=== PATIENT | male | born 1940 | race Caucasian/White ===

== ENCOUNTER 2016-12-04 13:17 | Emergency (ER) | payer MEDICARE, OTHER ==
[~2016-12-04] VITALS: Ht 175.3 cm; Wt 89.8 kg
[~2016-12-04 13:17] MED LIST: ASPIRIN325 MG PO; CEPHALEXIN500 MG PO; CLARITIN10 MG PO; KLOR-CON20 MEQ PO; LIPITOR40 MG PO; LISINOPRIL10 MG PO; MECLIZINE HCL25 MG PO; METOPROLOL SUCC25 MG PO; PREDNISONE20 MG PO; PRILOSEC20 MG PO; PSEUDOEPHEDRINE60 MG PO; TRANSDERM-SCOP1 EA TD; ZOFRAN ODT4 MG SL
[2016-12-04] MEDS ORDERED: RANITIDINE HCL300 MG PO (13:33)
[2016-12-04] MEDS ORDERED: COZAAR100 MG PO (13:34)
--- NOTE | 2016-12-04 19:13 | EKG ---
[facility] [address] [facility] [place] [address] Signed Normal sinus rhythm T wave abnormality, consider anterior ischemia Prolonged QT Abnormal ECG No previous ECGs available Confirmed by PABLO LI MD ([id number]) on 12/04/2016 7:13:03 PM Electronically Signed By: PABLO LI MD 12/04/16 191 PATIENT NAME: AMANDEEP ANDERSON ANNI Electrocardiogram DATE OF : 42 PHYSICIAN: PABLO LI MD REPORT #: [id number] REPORT IS CONFIDENTIAL AND NOT TO BE RELEASED WITHOUT AUTHORIZATION
== END 2016-12-04 16:30 | disposition home or self-care (01) ==
LOC: ED 13:17
DX: R07.89 Other chest pain (principal); I10 Essential (primary) hypertension; J45.909 Unspecified asthma, uncomplicated; Z91.038 Other insect allergy status; Z88.5 Allergy status to narcotic agent; Z95.1 Presence of aortocoronary bypass graft; Z79.82 Long term (current) use of aspirin
CPT/HCPCS: 71010; 80053; 84484; 85025; 93005; 93010; 99284

== ENCOUNTER 2017-04-05 06:50 | Day surgery (SDC) | payer MEDICARE, OTHER ==
[~2017-04-05] VITALS: Ht 175.3 cm; Wt 86.2 kg
[~2017-04-05 06:50] MED LIST changes: +COZAAR100 MG PO; +RANITIDINE HCL300 MG PO
--- NOTE | 2017-04-05 09:42 | NUR ---
04/05/17 0942 Ting Hoang [address], CHIN HOLDING NEEDED TO MAINTAIN AIRWAY. 0930 PT REACTIVE AND MOVING. 0937 ORAL AIRWAY REMOVED. PT MAINTAINING OWN AIRWAY. 0939 O2 SAT 98%, O2 DECREASED TO 8L.
--- NOTE | 2017-04-05 10:11 | NUR ---
PT IS BACK TO FROM PACU. SHE IS AWAKE AND ORIENTED. HE IS TOLERATING SIPS OF WATER. IS AT THE BEDSIDE. CALL LIGHT IS WITHIN REACH. NO OTHER C/O'S AT THIS TIME. WILL REASSESS WITHIN THE HOUR.
[2017-04-05] MEDS ORDERED: KEFLEX500 MG PO (10:30)
[2017-04-05] MEDS ORDERED: OXYCODONE HCL5 MG PO (10:30)
--- NOTE | 2017-04-05 11:10 | NUR ---
PT REPORTS THAT IT FEELS LIKE HE NEEDS TO BLOW HIS NOSE. HE IS EDUCATED NOT TO BLOW HIS NOSE HARD, THAT HE CAN GENTLY BREATH OUT. PT IS MEETING DISCHARGE CRITERIA AT THIS TIME. HE IS ASKED IF HE WOULD LIKE TO START GETTING READY TO GO HOME, HE STATES HE WOULD LIKE TO STAY A LITTLE BIT LONGER TO SEE IF HIS HEADACHE WILL GO AWAY. HE IS OFFERED SOMETHING MORE BESIDE PUDDING TO EAT. CALL LIGHT IS WITHIN REACH. NO OTHER C/O'S AT THIS TIME. WILL REASSESS WITHIN THE HOUR.
--- NOTE | 2017-05-24 14:15 | OR ---
[facility] [address] [place], [place] [address] Signed DATE OF OPERATION: 04/05/2017 SURGEON: Alexandro Bertrand MD PREOPERATIVE DIAGNOSES: Septal deformity, inferior turbinate hypertrophy, and left alar collapse. POSTOPERATIVE DIAGNOSES: Septal deformity, inferior turbinate hypertrophy, and left alar collapse. PROCEDURES: Septoplasty cautery, bilateral inferior turbinates, and left nasal vestibuloplasty. ANESTHESIA: General LMA, JW, Rafa. PREOPERATIVE HISTORY: Mr. Anderson is a 76-year-old man with nasal obstruction due to the above mentioned difficulties. He is taken to the operating for the above-mentioned procedures. PROCEDURE AND FINDINGS: After informed consent, the patient was taken to the operating room and placed in the supine position, where general LMA anesthesia was induced. The patient and procedure were verified. The patient received preoperative intranasal oxymetazoline and intravenous Ancef. Headlight nasal speculum exam of the nasal cavity showed a septal deviation to the left side, a cartilaginous spur. The inferior turbinates were nicely decongested. There was alar collapse with prominent cartilage in the nasal vestibule, left side. He had excision of skin cancer on the left side of his nose in the past and this causes the deformity intranasally causing obstruction. Septoplasty was performed first. A 1% lidocaine with epi was injected in the mucosa overlying the septal deviation. The deviated septal bone and cartilage were then excised with the Brigido. Airway was improved in this manner, minimal bleeding. The inferior turbinates were then cauterized starting on the right side. The long handle needle point cautery, multiple passes submucosal on the medial and inferior surface of the inferior turbinates starting anteriorly all the way back posteriorly. Excellent decongestion of the inferior turbinate was obtained in this manner. Same procedure on the left inferior turbinate, minimal bleeding. The left alar collapse was corrected. A 1% lidocaine with epi was injected in the left Electronically Signed By: ALEXANDRO BERTRAND MD 05/24/17 1415 PATIENT NAME: AMANDEPE ANDERSON OPERATIVE REPORT DATE OF : 42 REPORT #: [id number] PHYSICIAN: ALEXANDRO BERTRAND MD PCP: RENETTA MOYER MD REPORT IS CONFIDENTIAL AND NOT TO BE RELEASED WITHOUT AUTHORIZATION [facility] [address] [place] [address] Signed intranasal ala. The elliptical excision was made, excising prominent cartilage and tissue was removed with some underlying cartilage. Specimen was discarded. The bleeding was minimal, controlled with needle point cautery. Closure was with 5-0 interrupted Vicryl and the nasal ala was markedly improved in this manner. Packing was placed. Equal amount of trimmed Merocel coated with Neosporin one piece each side, tied anteriorly over a pad. The pharynx was suctioned clear of blood and secretions. The patient was then awakened, extubated, and transported to the recovery room in good condition. COMPLICATIONS: No complications. BLOOD LOSS: Minimal. SPECIMEN: No specimen. DRAINS: No drains. PACKING: One piece of Merocel in each nostril. Alexandro Bertrand MD GC/MODL /[id number] Electronically Signed By: ALEXANDRO BERTRAND MD 05/24/17 1415 PATIENT NAME: AMANDEEP ANDERSON ANNI OPERATIVE REPORT DATE OF : 42 REPORT #: [id number] PHYSICIAN: ALEXANDRO BERTRAND MD PCP: RENETTA MOYER MD REPORT IS CONFIDENTIAL AND NOT TO BE RELEASED WITHOUT AUTHORIZATION
== END 2017-04-05 12:30 | disposition home or self-care (01) ==
LOC: DS 06:50 → OPS 06:50 → DS 08:15 → OPS 08:15
PROVIDERS: Otolaryngology
PROC: 095L0ZZ Destruction of Nasal Turbinate, Open Approach (ICD-10-PCS; 2017-04-05)
PROC: 0CN Mouth and Throat, Release (ICD-10-PCS; 2017-04-05)
PROC: 09SM0ZZ Reposition Nasal Septum, Open Approach (ICD-10-PCS; principal; 2017-04-05 08:15)
DX: J34.2 Deviated nasal septum (principal); J34.3 Hypertrophy of nasal turbinates; J34.89 Other specified disorders of nose and nasal sinuses
CPT/HCPCS: 00160; J0690; J1100; J1885; J2405; J2704; J3010; J7120

== ENCOUNTER 2017-07-15 09:35 | Day surgery (SDC) | payer MEDICARE, OTHER ==
[~2017-07-15] VITALS: Ht 172.7 cm; Wt 87.1 kg
[~2017-07-15 09:35] MED LIST changes: +KEFLEX500 MG PO; +OXYCODONE HCL5 MG PO
--- NOTE | 2017-07-15 13:23 | NUR ---
07/15/17 1323 Rere Menendez TO PACU, RESP EVEN UNLABORED. EASILY AWAKENED
--- NOTE | 2017-07-16 10:03 | OR ---
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 POSTOPERATIVE DIAGNOSES: 1. Gastritis including antrum and duodenitis without ulceration. 2. Normal-appearing colon. PROCEDURES: 1. Esophagogastroduodenoscopy with biopsy. 2. Total colonoscopy to cecum. ANESTHESIA: Intravenous sedation. MEDICATIONS: Fentanyl 100 mcg, Versed 5 mg. INDICATION: This 77-year-old white man is a patient of Dr. Alex. 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 His daughter had colon cancer diagnosed at age 32. The patient has undergone surveillance colonoscopy by me over time and has had polypectomies, particularly on the right colon. He is symptom-free at this time. He also was known to have gastritis in the past and takes Zantac. His last upper endoscopy was in May 2016. Colonoscopy last in May 2016 as well. He was admitted to undergo surveillance colonoscopy as well as upper endoscopy. He understands the risks of bleeding, infection, and perforation. FINDINGS: On upper endoscopy, he did have significant antral gastritis and duodenitis. There was no sign of polyp. CLOtest was negative. On colonoscopy, the prep was good and complete colonoscopy to the cecum showed no sign of recurrent polyps. Areas of tattoo marking from prior polypectomies were well demonstrated showing no sign of recurrence. DESCRIPTION OF PROCEDURE: Electronically Signed By: JORGE A TINSLEY MD 07/16/17 1003 PATIENT NAME: AMANDEEP ANDERSON OPERATIVE REPORT DATE OF : 42 REPORT #: [id number] PHYSICIAN: JORGE A TINLSEY MD PCP: BABAR ALEX MD REPORT IS CONFIDENTIAL AND NOT TO BE RELEASED WITHOUT AUTHORIZATION [facility] [address] [place], [place] [address] Signed The patient was brought to the endoscopy suite given topical Hurricaine spray and hypopharyngeal anesthesia and placed in lateral decubitus position. He was given intravenous sedation to the point of slurred speech and nystagmus. Olympus video upper endoscope was passed in the hypopharynx after placement of a bite block. The vocal cords appeared normal. The esophagus appeared to have mild distal inflammation, but no sign of neoplasm or varices. The scope was passed into the stomach where obvious chronic gastritis was noted. There was no sign of ulceration. The pylorus was normal in appearance, but was a bit challenging to pass the scope into the duodenum due to confirmation of the stomach itself. Ultimately, the duodenum was intubated and chronic duodenitis without ulceration was noted. Biopsies were obtained. The scope was withdrawn and biopsies taken of the antrum for both MARGOT and pathologic testing. Retroflexed views showed a reasonably good flap valve. The scope was withdrawn to the distal esophagus where biopsies were taken there. Further withdrawal of scope showed no other findings. Plans were then made for colonoscopy. Digital rectal examination was found to be normal. Olympus video colonoscope was passed in the rectum and manipulated throughout the colon ultimately intubating the cecum itself. The ileocecal valve and appendiceal orifice were normal. The scope was withdrawn from that point, showing no sign of abnormality, but did confirm multiple areas of endoscopic tattoo, particularly at the hepatic flexure from the past. The scope was further withdrawn and additional area of tattoo marking noted in the left colon. Remaining colon was entirely normal and retroflex view was normal as well. The scope was removed and the patient was taken to recovery room in good condition. CONCLUDING DIAGNOSES: 1. Antral gastritis and duodenitis. No sign of neoplasm or polyps. 2. Normal-appearing colon. No evidence of recurrent polyp currently. PLAN: 1. For screening protocol, colonoscopy would be recommended for 1 year. 2. Due to significant antral gastritis and duodenitis, will inquire whether he is having much in the way of symptoms. He is taking Zantac on a routine basis. Addition of Carafate may be of benefit to him if concern is maintained regarding PPI medication. Jorge A Tinsley MD Electronically Signed By: JORGE A TINSLEY MD 07/16/17 1003 PATIENT NAME: AMANDEEP ANDERSON OPERATIVE REPORT DATE OF : 42 REPORT #: [id number] PHYSICIAN: JORGE A TINSLEY MD PCP: BABAR ALEX MD REPORT IS CONFIDENTIAL AND NOT TO BE RELEASED WITHOUT AUTHORIZATION [facility] [address] [facility] [place], [place] [address] Signed PASQUALE/ERIC /[id number] cc: Babar Alex MD Copies: BABAR ALEX MD ~ Electronically Signed By: JORGE A TINSLEY MD 07/16/17 1003 PATIENT NAME: AMANDEEP ANDERSON OPERATIVE REPORT DATE OF : 42 REPORT #: [id number] PHYSICIAN: JORGE A TINSLEY MD PCP: BABAR ALEX MD REPORT IS CONFIDENTIAL AND NOT TO BE RELEASED WITHOUT AUTHORIZATION
== END 2017-07-15 14:08 | disposition home or self-care (01) ==
LOC: OPS 09:35 → DS 09:35 → OPS 11:00
PROVIDERS: Surgery
PROC: 0DB68ZX Excision of Stomach, Via Natural or Artificial Opening Endoscopic, Diagnostic (ICD-10-PCS; 2017-07-15)
PROC: 0DB38ZX Excision of Lower Esophagus, Via Natural or Artificial Opening Endoscopic, Diagnostic (ICD-10-PCS; 2017-07-15)
PROC: 0DJD8ZZ Inspection of Lower Intestinal Tract, Via Natural or Artificial Opening Endoscopic (ICD-10-PCS; principal; 2017-07-15 11:00)
PROC: 0DB98ZX Excision of Duodenum, Via Natural or Artificial Opening Endoscopic, Diagnostic (ICD-10-PCS; 2017-07-15 11:00)
DX: Z12.11 Encounter for screening for malignant neoplasm of colon (principal); K21.0 Gastro-esophageal reflux disease with esophagitis; J45.909 Unspecified asthma, uncomplicated; E78.00 Pure hypercholesterolemia, unspecified; I10 Essential (primary) hypertension; Z85.828 Personal history of other malignant neoplasm of skin; Z86.010 Personal history of colon polyps; Z88.5 Allergy status to narcotic agent; Z88.8 Allergy status to other drugs, medicaments and biological substances; Z80.0 Family history of malignant neoplasm of digestive organs; Z98.890 Other specified postprocedural states; Z15.09 Genetic susceptibility to other malignant neoplasm
CPT/HCPCS: 43239; G0105; 88305; 88313; 99153; G0500; J2250; J3010; J7120

== ENCOUNTER 2018-05-02 17:02 | Emergency (ER) | payer MEDICARE, OTHER ==
[~2018-05-02] VITALS: Ht 172.7 cm; Wt 87.1 kg
[2018-05-02] MEDS ORDERED: BENZONATATE100 MG PO (19:36)
[2018-05-02] MEDS ORDERED: PRILOSEC OTC20 MG PO (19:37)
[2018-05-02] MEDS ORDERED: VENTOLIN HFA18 GM INH (19:38)
[2018-05-02] MEDS ORDERED: FLOVENT HFA10.6 GM INH (19:38)
== END 2018-05-02 21:29 | disposition home or self-care (01) ==
LOC: ED 17:02
DX: J10.1 Influenza due to other identified influenza virus with other respiratory manifestations (principal); I10 Essential (primary) hypertension; Z91.038 Other insect allergy status; Z91.030 Bee allergy status; Z88.8 Allergy status to other drugs, medicaments and biological substances; Z88.5 Allergy status to narcotic agent; Z79.899 Other long term (current) drug therapy; Z79.82 Long term (current) use of aspirin
CPT/HCPCS: 87502; 99283

== ENCOUNTER 2018-07-27 11:39 | Day surgery (SDC) | payer MEDICARE, OTHER ==
[~2018-07-27] VITALS: Ht 172.7 cm; Wt 88.9 kg
[~2018-07-27 11:39] MED LIST changes: +BENZONATATE100 MG PO; +FLOVENT HFA10.6 GM INH; +PRILOSEC OTC20 MG PO; +PROAIR HFA8.5 GM INH; +VENTOLIN HFA18 GM INH; +XYZAL5 MG PO
--- NOTE | 2018-07-27 13:26 | NUR ---
07/27/18 1326 Irma Nguyen PATIENT IS AWAKE AND TALKING WITH RN. PATIENT DENIES PAIN AND NAUSEA.
--- NOTE | 2018-07-28 14:25 | OR ---
[facility] [address] [place], [place] [address] Signed DATE OF OPERATION: 07/27/2018 SURGEON: Jorge A Tinsley MD PREOPERATIVE DIAGNOSES: 1. Known Saba syndrome. 2. History of polyps of cecum. 3. Significant history of gastroesophageal reflux. POSTOPERATIVE DIAGNOSES: 1. Persistent ulcerative distal esophagitis with small hiatal hernia. 2. Minimal antral gastritis. 3. Questionable remnant of polyp at cecum (excised). PROCEDURES: 1. Esophagogastroduodenoscopy with biopsy. 2. Total colonoscopy to cecum with cold morcellation, excision of mucosa at cecum. ANESTHESIA: Intravenous sedation, fentanyl 100 mcg and Versed 3 mg. INDICATION: This 78-year-old white man is a patient Dr. Alex and well demonstrated to have Saba syndrome. This was discovered after his daughter, who was discovered to have colon cancer at young age and genetic testing undertaken and confirmed in the patient himself. He has undergone colonoscopy and upper endoscopy in the past, last year on June 18, 2017. He has also undergone upper endoscopy and colonoscopy at that time noted to have ulcerative esophagitis. He is admitted at this time to undergo surveillance colonoscopy as well as upper endoscopy as he continues to have persistent esophagitis type symptoms despite being on Prilosec. He has been advised by his PCP, Dr. Alex, to alternate Prilosec with Zantac. He understands the risks of upper endoscopy and colonoscopy and wished to proceed. FINDINGS: Upper endoscopy stomach showed persistent distal ulcerative esophagitis. There was no sign of Nichole's epithelium. A low-grade stricture was noted. The stomach had mild antral gastritis but was otherwise normal. CLOtest was negative. On colonoscopy, the prep was good. Complete colonoscopy to the cecum was accomplished. There was obvious tattoo from prior polypectomy of the cecum. In the area of mucosa between two areas of tattoo was suggestive though not diagnostic of persistent polyp. Electronically Signed By: JORGE A TINSLEY MD 07/28/18 1425 PATIENT NAME: AMANDEEP ANDERSON OPERATIVE REPORT DATE OF : 42 REPORT #: [id number] PHYSICIAN: JORGE A TINSLEY MD PCP: BABAR ALEX MD REPORT IS CONFIDENTIAL AND NOT TO BE RELEASED WITHOUT AUTHORIZATION [facility] [address] [place] [address] Signed Narrow band imaging was not helpful in determining this. The area was thus excised with morcellation technique and pathology is pending. The remaining colon was normal except for scattered diverticula. DESCRIPTION OF PROCEDURE: The patient was brought to the endoscopy suite and placed in lateral decubitus position after undergoing topical Hurricaine spray hypopharyngeal anesthesia. A bite block was placed. An Olympus video upper endoscope passed in the hypopharynx. The vocal cords appeared normal. Scope was advanced to the esophagus throughout its length, normal except in the distal portion where there was linear ulcerations and some stiffness, though no well-formed stricture. The scope was advanced to the stomach, which was insufflated with air. Rugal folds were normal. There was mild antral gastritis. No erosion or ulcers. The pylorus was normal scope was passed through into the duodenum, which was normal. Biopsies were obtained nevertheless to assess for celiac disease. The scope was withdrawn showing no sign of duodenal polyps. The scope was then withdrawn to the stomach where biopsies were taken for both MARGOT and pathologic testing. Retroflexed view confirmed a small hiatal hernia. The scope was straightened, withdrawn to the distal esophagus where multiple biopsies were taken of the thickened ulcerated distal esophagus. Further withdrawal of scope showed no other abnormalities. Plans were then made for colonoscopy. Digital rectal examination was found to be normal. An Olympus video colonoscope was passed in the rectum and manipulated throughout the colon noting diverticula of the sigmoid and left colon. Scope was advanced to the cecum and with abdominal wall stabilization, particularly on the right side. The scope was able to fully intubate the cecum itself. The area of prior endoscopic tattoo dye was noted in confluence of areas of dye was a fold with what appeared to be possible remnant of polyp, though this was not certain. Narrow band imaging was not helpful in determining this. The area since possibly adenomatous was multiple EO biopsied and excised by that approach completely. Careful withdrawal of scope showed no sign of other polyps or other mucosal lesion up on withdrawal of scope. Retroflex view was normal as well. The scope was removed and the patient was taken to recovery room in good condition. CONCLUDING DIAGNOSES: 1. Ongoing distal esophagitis. 2. Possible polyp remnant of cecum (excised). PLAN: Recommend Prilosec 120 mg daily without alternate H2 martine. If he is already doing that, then recommend double dose 40 mg daily. He will return to see me in 4-6 weeks to review findings and his progress particularly regarding esophagitis. Electronically Signed By: JORGE A TINSLEY MD 07/28/18 1425 PATIENT NAME: AMANDEEP ANDERSON OPERATIVE REPORT DATE OF : 42 REPORT #: [id number] PHYSICIAN: JORGE A TINSLEY MD PCP: BABAR ALEX MD REPORT IS CONFIDENTIAL AND NOT TO BE RELEASED WITHOUT AUTHORIZATION [place] [address] Signed MD PASQUALE Fox/MODL /[id number] cc: Babar Alex MD Copies: BABAR ALEX MD ~ Electronically Signed By: JORGE A TINSLEY MD 07/28/18 1425 PATIENT NAME: AMANDEEP ANDERSON OPERATIVE REPORT DATE OF : 42 REPORT #: [id number] PHYSICIAN: JORGE A TINSLEY MD PCP: BABAR ALEX MD REPORT IS CONFIDENTIAL AND NOT TO BE RELEASED WITHOUT AUTHORIZATION
== END 2018-07-27 14:05 | disposition home or self-care (01) ==
LOC: DS 11:39 → OPS 11:39 → DS 13:00 → OPS 14:05
PROVIDERS: Surgery
PROC: 0DB38ZX Excision of Lower Esophagus, Via Natural or Artificial Opening Endoscopic, Diagnostic (ICD-10-PCS; 2018-07-27)
PROC: 0DBH8ZX Excision of Cecum, Via Natural or Artificial Opening Endoscopic, Diagnostic (ICD-10-PCS; 2018-07-27)
PROC: 0DB98ZX Excision of Duodenum, Via Natural or Artificial Opening Endoscopic, Diagnostic (ICD-10-PCS; principal; 2018-07-27 13:00)
PROC: 0DB78ZX Excision of Stomach, Pylorus, Via Natural or Artificial Opening Endoscopic, Diagnostic (ICD-10-PCS; 2018-07-27 13:00)
DX: Z12.11 Encounter for screening for malignant neoplasm of colon (principal); D12.0 Benign neoplasm of cecum; K29.50 Unspecified chronic gastritis without bleeding; K22.10 Ulcer of esophagus without bleeding; K21.0 Gastro-esophageal reflux disease with esophagitis; K44.9 Diaphragmatic hernia without obstruction or gangrene; J68.3 Other acute and subacute respiratory conditions due to chemicals, gases, fumes and vapors; I10 Essential (primary) hypertension; Z15.09 Genetic susceptibility to other malignant neoplasm; Z88.5 Allergy status to narcotic agent; Z98.890 Other specified postprocedural states
CPT/HCPCS: 99153; G0500; J2250; J3010; J7120

== ENCOUNTER 2019-10-02 08:05 | Day surgery (SDC) | payer MEDICARE, OTHER ==
[~2019-10-02] VITALS: Ht 172.7 cm; Wt 94.8 kg
--- NOTE | 2019-10-02 09:57 | NUR ---
10/02/19 0957 Maite Kohler 0946 PT ARRIVED IN PACU SLEEPY WITH NO C/O'S. ABD SOFT. 0955 ENCOURAGED COUGH, DEEP BREATHING. REPOSTIONED TO BACK AND SITTING UP IN BED.
--- NOTE | 2019-10-02 13:17 | OR ---
[facility] [address] [place], [place] [address] Signed DATE OF OPERATION: 10/02/2019 SURGEON: Jorge A Tinsley MD PREOPERATIVE DIAGNOSES: 1. Known Saba syndrome. 2. History of polyps of right colon. POSTOPERATIVE DIAGNOSIS: No evidence of polyps currently. PROCEDURE: Total colonoscopy to cecum surgeon. ANESTHESIA: Intravenous sedation, fentanyl 100 mcg and Versed 3 mg. 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 He has undergone colonoscopy by me in the past. His last colonoscopy and concurrent upper endoscopy were performed on July 27, 2018. He had mild esophagitis and gastritis and his symptoms have cleared from reflux. A small polyp of cecum with high-grade dysplasia was noted. He currently has no symptoms of bleeding, diarrhea or constipation. He has undergone polypectomy in the area of the right colon and tattoo has been undertaken as well. He is here for surveillance colonoscopy. He understands the risks of bleeding, infection, perforation, and other unforeseen complications. FINDINGS: The prep was good. Complete colonoscopy was undertaken of the cecum without question. He had no evidence of polyps. He did have three areas of endoscopic tattoo markings noted in the right colon. DESCRIPTION OF PROCEDURE: The patient was brought to the endoscopy suite and placed in lateral decubitus position, given intravenous sedation to the point of slurred speech and nystagmus. Digital rectal examination was normal. An Olympus video colonoscope was passed in the rectum and manipulated throughout the colon ultimately intubating the cecum itself. The ileocecal valve and appendiceal Electronically Signed By: JORGE A TINSLEY MD 10/02/19 1317 PATIENT NAME: AMANDEEP ANDERSON OPERATIVE REPORT DATE OF : 42 REPORT #: [id number] PHYSICIAN: JORGE A TINSLEY MD PCP: BABAR ALEX MD REPORT IS CONFIDENTIAL AND NOT TO BE RELEASED WITHOUT AUTHORIZATION [facility] [address] [place] [address] Signed orifice were normal. He did require position change to allow for complete intubation of the cecum. The scope was withdrawn from that point and examination throughout showed no sign of polyps, diverticular formation, colitis, or cancer. Tattoo markings of the right colon were noted from prior polypectomy. Retroflexed view was normal as well. The scope was removed and the patient was taken to the recovery room in good condition. CONCLUSION DIAGNOSIS: Normal colon. PLAN: Current standard is to recommend an annual colonoscopy in patients with Saba syndrome, particularly those with prior polyps. We will make that recommendation. MD PASQUALE Fox/ERIC /[id number] cc: Babar Alex MD Copies: BABAR ALEX MD ~ Electronically Signed By: JORGE A TINSLEY MD 10/02/19 1317 PATIENT NAME: AMANDEEP ANDERSON OPERATIVE REPORT DATE OF : 42 REPORT #: [id number] PHYSICIAN: JORGE A TINSLEY MD PCP: BABAR ALEX MD REPORT IS CONFIDENTIAL AND NOT TO BE RELEASED WITHOUT AUTHORIZATION
== END 2019-10-02 10:32 | disposition home or self-care (01) ==
LOC: OPS 08:05 → DS 08:11 → OPS 10:32 → DS 13:00
PROVIDERS: Surgery
PROC: 0DJD8ZZ Inspection of Lower Intestinal Tract, Via Natural or Artificial Opening Endoscopic (ICD-10-PCS; principal; 2019-10-02 13:00)
DX: Z09 Encounter for follow-up examination after completed treatment for conditions other than malignant neoplasm (principal); I10 Essential (primary) hypertension; K21.9 Gastro-esophageal reflux disease without esophagitis; Z88.6 Allergy status to analgesic agent; Z86.010 Personal history of colon polyps; Z79.899 Other long term (current) drug therapy; Z79.82 Long term (current) use of aspirin
CPT/HCPCS: 99153; G0500; J2250; J3010

== ENCOUNTER 2020-12-14 17:40 | Emergency (ER) | payer MEDICARE, OTHER ==
[~2020-12-14] VITALS: Ht 172.7 cm; Wt 94.8 kg
--- NOTE | 2020-12-14 18:57 | EKG ---
[facility] [address] [facility] [place] [address] Signed Normal sinus rhythm Left axis deviation Abnormal ECG When compared with ECG of 04-DEC-2016 13:27, QRS axis shifted left T wave inversion no longer evident in Anterior leads Confirmed by RG HOGAN MD ([id number]) on 12/14/2020 6:57:41 PM Electronically Signed By: RG HOGAN MD 12/14/20 1857 PATIENT NAME: ANDERSONAMANDEEP Electrocardiogram DATE OF : 42 PHYSICIAN: RG HOGAN MD REPORT #: [id number] REPORT IS CONFIDENTIAL AND NOT TO BE RELEASED WITHOUT AUTHORIZATION
== END 2020-12-14 20:18 | disposition home or self-care (01) ==
LOC: ED 17:40
DX: R42 Dizziness and giddiness (principal); I10 Essential (primary) hypertension; J45.909 Unspecified asthma, uncomplicated; Z88.5 Allergy status to narcotic agent; Z91.030 Bee allergy status; Z91.038 Other insect allergy status; Z88.8 Allergy status to other drugs, medicaments and biological substances; Z88.1 Allergy status to other antibiotic agents; Z79.82 Long term (current) use of aspirin; Z79.899 Other long term (current) drug therapy
CPT/HCPCS: 71045; 80053; 81001; 84484; 85025; 93005; 93010; 99285-25

== ENCOUNTER 2021-02-16 11:44 | Day surgery (SDC) | payer MEDICARE, OTHER ==
[~2021-02-16] VITALS: Ht 172.7 cm; Wt 92.0 kg
[~2021-02-16 11:44] MED LIST changes: +24HR ALLERGY REL5 MG PO
[2021-02-16] MEDS ORDERED: VAZALORE81 MG PO (12:38)
[2021-02-16] MEDS ORDERED: CLARITIN10 MG PO (12:40)
--- NOTE | 2021-02-16 17:09 | NUR ---
02/16/21 1709 Maite Kohler 1600 PT ARRIVED IN PACU SLEEPY WITH SATS 85% ON RA. O2 AT 2L VIA NC PLACED AND SATS INCREASED TO 90%. ENCOURAGED COUGH, DEEP BREATHNG. ABD SOFT AND PASSING FLATUS. 1615 OXYGEN REMOVED. PT SITTING UP IN BED TALKING TO ALL QUESTIONS ANSWERED. 1620 SIPPING ON APPLE JUICE. 1630 RN AT BEDSIDE FOR STAND BY ASSIST WHILE PT GETTING DRESSED. DC INSTRUCTIONS GIVEN. 1645 LEFT VIA W/C TO MICHELL FOR CARERIDE ON RESERVATION. MICHELL AGEE STATED "I KNOW JONATHON AND BILL, I'LL MAKE SURE THEY GET HOME."
--- NOTE | 2021-02-18 13:37 | OR ---
[facility] [address] [place], [place] [address] Signed DATE OF OPERATION: 02/16/2021 SURGEON: Jorge A Tinsley MD PREOPERATIVE DIAGNOSIS: Saba syndrome. POSTOPERATIVE DIAGNOSES: 1. Mild distal esophagitis with hiatal hernia (chronic long-standing). No sign of polyp or neoplasm. 2. Normal colonoscopy. No evidence of polyps. PROCEDURES: 1. Esophagogastroduodenoscopy with biopsy. 2. Total colonoscopy to cecum. ANESTHESIA: Intravenous sedation, fentanyl 100 mcg, Versed 6 mg total. INDICATION: A 80-year-old white man, who is a patient of Dr. Alex and has been demonstrated to have Saba syndrome genetic testing. His daughter presented with colon cancer at young age. The patient has undergone colonoscopy in the past with polypectomy. Additionally, he has undergone upper endoscopy. He is known to have reflux disease for which he takes Prilosec on a routine basis for good symptom control. He is admitted to undergo surveillance colonoscopy and upper endoscopy on the basis of his Saba syndrome. He is currently free of symptoms generally speaking. He understands the risks of bleeding, infection, and perforation related to upper endoscopy and colonoscopy and wished to proceed. FINDINGS: Upper endoscopy showed no evidence of polyps or neoplasm. There was mild bulbar duodenitis, hiatal hernia, and minimal distal esophagitis, which was chronic. On colonoscopy, the prep was good. Complete colonoscopy was undertaken of the cecum. There were a few scattered diverticula of the sigmoid, but no evidence of recurrent polyp. Areas of prior polypectomy with Endo marie tattoo dye were identified and free of any recurrent polyp. DESCRIPTION OF PROCEDURE: Electronically Signed By: JORGE A TINSLEY MD 02/18/21 1337 PATIENT NAME: AMANDEEP ANDERSON OPERATIVE REPORT DATE OF : 42 REPORT #: [id number] PHYSICIAN: JORGE A TINSLEY MD PCP: BABAR ALEX MD REPORT IS CONFIDENTIAL AND NOT TO BE RELEASED WITHOUT AUTHORIZATION [facility] [address] [place], [place] [address] Signed The patient was brought to the endoscopy suite and placed in the lateral decubitus position given intravenous sedation to a point of slurred speech and nystagmus after undergoing topical lidocaine hypopharyngeal anesthesia. A bite block was placed. An Olympus video upper endoscope was passed in the hypopharynx. The vocal cords were normal. Examination of stomach, duodenum, and esophagus showed findings only of mild proximal gastritis and a hiatal hernia as well as mild distal esophagitis, which was chronic and without sign of Nichole's epithelium. Biopsies were taken of the duodenal bulb, the stomach for CLOtest, and the distal esophagus. Scope was removed and plans were then made for colonoscopy. Digital rectal examination was found to be normal. The Olympus video colonoscope was passed in the rectum and manipulated throughout the colon ultimately intubating the cecum itself. The prep was good. The scope was withdrawn from that point. Examination throughout showed no sign of polyps or colitis, only a few scattered diverticula of the sigmoid. Retroflexed view was normal as well. The scope was removed. The patient was taken to the recovery room in good condition. CONCLUDING DIAGNOSIS: No evidence of polyps or neoplasm. PLAN: Recommend repeat colonoscopy in 1 to 2 years per current protocol for Saba syndrome surveillance. Upper endoscopy in 2 to 4 years. Jorge A Tinsley MD JM/MODL /[id number] cc: Babar Alex MD Copies: BABAR ALEX MD ~ Electronically Signed By: JORGE A TINSLEY MD 02/18/21 1337 PATIENT NAME: AMANDEEP ANDERSON ANNI OPERATIVE REPORT DATE OF : 42 REPORT #: [id number] PHYSICIAN: JORGE A TINSLEY MD PCP: BABAR ALEX MD REPORT IS CONFIDENTIAL AND NOT TO BE RELEASED WITHOUT AUTHORIZATION
--- NOTE | 2021-02-18 17:21 | PATH ---
[facility] [address] [place], [place] [address] Signed SPECIMEN(S): A DUODENAL BULB BIOPSY SPECIMEN(S): B DISTAL LOWER ESOPHAGUS BIOPSY SPECIMEN SOURCE: A. DUODENAL BULB BIOPSY B. DISTAL LOWER ESOPHAGUS BIOPSY CLINICAL HISTORY: Gastro duodenitis; family history of colon cancer; history of polyps; mcbride syndrome; dysphagia; mild chronic esophagitis; diverticulitis MICROSCOPIC DESCRIPTION: Histologic sections of all submitted blocks are examined by light microscopy. These findings, together with the gross examination, support the pathologic diagnosis. FINAL PATHOLOGIC DIAGNOSIS: A. Duodenal bulb, biopsy: - No significant histopathology. B. Distal lower esophagus, biopsy: - Reflux esophagitis. - No evidence of Nichole's esophagus. - Fragments of normal appearing gastric mucosa. COMMENT: Regarding specimen A, the sections from the duodenal biopsy show portions of duodenal mucosa with long finger-like villi. There is no villous atrophy, crypt hyperplasia or intraepithelial lymphocytosis, making a diagnosis of celiac disease unlikely. There is no evidence of peptic duodenitis, microorganisms, abnormal infiltrates or neoplasia. Regarding specimen B, the biopsy contains reactive appearing squamous mucosa. Chronic inflammation is present with some eosinophils noted. There is a small fragment of gastric mucosa present. It is histologically unremarkable. There is no evidence of intestinal metaplasia. TWK:radha:C2NR GROSS DESCRIPTION: Two specimens are received in two containers, labeled "Amandeep Anderson." A. The specimen, labeled "Amandeep Anderson," and designated on the requisition "duodenum biopsy," is received in formalin and consists of two loving soft tissue fragments that measure 0.3 and 0.3 cm in PATIENT NAME: AMANDEEP ANDERSON PATHOLOGY DATE OF : 42 REPORT #: [id number] PHYSICIAN: EDDA TOUSSAINT PCP: RENETTA MOYER MD REPORT IS CONFIDENTIAL AND NOT TO BE RELEASED WITHOUT AUTHORIZATION [facility] [address] [place] [id number] Signed greatest dimension. The specimen is entirely submitted in cassette (A1). B. The specimen, labeled "Amandeep Anderson," and designated on the requisition "lower esophagus biopsy," is received in formalin and consists of three white-loving soft tissue fragments that measure 0.2 to 0.3 cm in greatest dimension. The specimen is entirely submitted in cassette (B1). FB (under the direct supervision of a pathologist) The Gross Description was prepared using a voice recognition system. The report was reviewed for accuracy; however, sound-alike word errors, addition and/or deletions may occur. If there is any question about this report, please contact Client Services. PERFORMING LABORATORY: The technical component was performed by [facility], [address] [place] [id number] (Inclusion Teacher: Brittney Scott MD; CLIA# [id number]). Professional [facility], [address] [address] (CLIA# [id number]). Diagnostician: Saul Adams MD Pathologist Electronically Signed 02/18/2021 Copies: ~ PATIENT NAME: AMANDEEP ANDERSON PATHOLOGY DATE OF : 42 REPORT #: [id number] PHYSICIAN: EDDA PATHOLOGY PCP: RENETTA MOYER MD REPORT IS CONFIDENTIAL AND NOT TO BE RELEASED WITHOUT AUTHORIZATION
== END 2021-02-16 16:45 | disposition home or self-care (01) ==
LOC: DS 11:44 → OPS 11:44 → DS 14:00 → OPS 16:45
PROVIDERS: ATTEND Surgery
PROC: 0DB98ZX Excision of Duodenum, Via Natural or Artificial Opening Endoscopic, Diagnostic (ICD-10-PCS; principal; 2021-02-16 14:00)
PROC: 0DJD8ZZ Inspection of Lower Intestinal Tract, Via Natural or Artificial Opening Endoscopic (ICD-10-PCS; 2021-02-16 14:00)
DX: K21.00 Gastro-esophageal reflux disease with esophagitis, without bleeding (principal); K44.9 Diaphragmatic hernia without obstruction or gangrene; I10 Essential (primary) hypertension; Z86.010 Personal history of colon polyps; Z15.09 Genetic susceptibility to other malignant neoplasm; Z85.828 Personal history of other malignant neoplasm of skin; Z88.6 Allergy status to analgesic agent; Z95.1 Presence of aortocoronary bypass graft
CPT/HCPCS: 99153; G0500; J7121

== ENCOUNTER 2021-02-26 09:26 | Emergency (ER) | payer MEDICARE, OTHER ==
[~2021-02-26] VITALS: Ht 172.7 cm; Wt 91.6 kg
[~2021-02-26 09:26] MED LIST changes: +VAZALORE81 MG PO
== END 2021-02-26 10:00 | disposition home or self-care (01) ==
LOC: ED 09:26
DX: S61.412A Laceration without foreign body of left hand, initial encounter (principal); W22.8XXA Striking against or struck by other objects, initial encounter; I10 Essential (primary) hypertension; J45.909 Unspecified asthma, uncomplicated; Z91.030 Bee allergy status; Z88.8 Allergy status to other drugs, medicaments and biological substances; Z88.1 Allergy status to other antibiotic agents; Z88.5 Allergy status to narcotic agent; Z79.899 Other long term (current) drug therapy; Z79.82 Long term (current) use of aspirin
CPT/HCPCS: 99282

== ENCOUNTER 2022-05-03 12:04 | Day surgery (SDC) | payer MEDICARE, OTHER ==
[~2022-05-03] VITALS: Ht 172.7 cm; Wt 93.0 kg
[~2022-05-03 12:04] MED LIST changes: +QVAR REDIHALE10.6 GM INH
[2022-05-03] MEDS ORDERED: VAZALORE81 MG PO (12:41)
--- NOTE | 2022-05-03 14:00 | NUR ---
PATIENT UPDATED ON SURGERY SCHEDULED. WARM BLANKET PROVIDED AND FILI HUGGER TURNED ON. NO OTHER NEEDS AT THIS TIME.
--- NOTE | 2022-05-03 15:42 | NUR ---
05/03/22 1542 Yaneth Leon 1530 PATIENT ARRIVES TO PACU RESTING WITH EYES CLOSED. AWAKENS WITH VERBAL STIMULI. RESP EVEN AND UNLABORED, MASK AT 15 LITERS, DECREASED TO 5 LITERS VIA NC WITH CO2 MONITOR. PATIENT DENIES PAIN OR NAUSEA. 1535 PATIENT AWAKE BUT DROWSY. PATIENT'S BROUGHT TO BEDSIDE, SHE IS VERY UPSET AND CONFUSED, BASELINE FOR PATIENT. RESP EVEN AND UNLABORED, NC TURNED OFF. 1540 PATIENT REPOSITIONS SELF TO BACK. PASSING GAS. DENIES NEEDS. RESP EVEN AND UNLABORED, ROOM AIR SATS >93%. DRINKING JUICE.
--- NOTE | 2022-05-03 16:18 | NUR ---
1600-PATIENT BACK TO ROOM 6 FROM PACU. RECEIVED REPORT FORM SLOAN GAN. PATIENT AWAKE AND TALKING. RESP EVEN AND UNLABORED. DENIES PAIN AND NAUSEA. PATIENT DRINKING JUICE. AT BEDSIDE. NO OTHER NEEDS AT THIS TIME. CALL LIGHT WITHIN REACH.
--- NOTE | 2022-05-03 17:42 | NUR ---
1650: PT RESTING IN BED WITH SPOUSE AT BEDSIDE. PT DENIES ANY ABD PAIN AND DENIES DIZZINESS WHILE SITTING AT SIDE OF BED. PT DRESSES SELF WITH SPOUSE AT BEDSIDE. PT REQUESTS TO HAVE IV REMOVED, COBAN PRESSURE DRESSING PLACED. [facility] CALLED FOR SAFE RIDE HOME. PT AND SPOUSE DC VIA WC TO [facility]AX[facility] AT FRONT ENTRANCE TO HOME.
--- NOTE | 2022-05-04 10:39 | OR ---
[facility] [address] [place], [place] [address] Signed DATE OF OPERATION: 05/03/2022 SURGEON: Jorge A Tinsley MD PREOPERATIVE DIAGNOSIS: Known Saba syndrome. POSTOPERATIVE DIAGNOSIS: Essentially normal colon to cecum; area of hyperplastic thickening at 40 cm. PROCEDURE: Total colonoscopy to cecum with biopsy at 40 cm. ANESTHESIA: Intravenous sedation; fentanyl 100 mcg, Versed 4 mg and one-half amp of Narcan. INDICATIONS: An -fkej-wxq white man is a patient Dr. Babar Alex is known to have Saba syndrome. Discovery was made after his daughter in his early 30s developed colon cancer. The patient has undergone surveillance colonoscopy and upper endoscopy in the past. He is symptom free currently. He is admitted to undergo colonoscopy. He understands the risks of bleeding, infection, and perforation. FINDINGS: The prep was excellent. Complete colonoscopy was undertaken to the cecum without question. He had an area of mucosal thickening at 40 cm, probably not adenomatous, but uncertain. If adenoma is noted, then elaborate mucosal lift resection will be required. There is no other sign of abnormality. Notably, he did have suppression of his respirations early after initial administration requiring 1/2 amp of Narcan, which allowed him to ventilate without impediment. DESCRIPTION OF PROCEDURE: The patient was brought to the endoscopy suite and placed in lateral decubitus position given intravenous sedation to the point of slurred speech and nystagmus. Digital rectal examination was normal. An Olympus video colonoscope was passed in the rectum and manipulated throughout the colon noting a few scattered diverticula. The scope was ultimately passed to the cecum. The ileocecal valve and appendiceal orifice were normal. In the early stages of Electronically Signed By: JORG EA TINSLEY MD 05/04/22 1039 PATIENT NAME: AMANDEEP ANDERSON OPERATIVE REPORT DATE OF : 42 REPORT #: [id number] PHYSICIAN: JORGE A TINSLEY MD PCP: BABAR ALEX MD REPORT IS CONFIDENTIAL AND NOT TO BE RELEASED WITHOUT AUTHORIZATION [facility] [address] [place], [place] [address] Signed colonoscopy, he had persistent suppression of his ventilations despite as external stimulation and it was deemed safest to administer one-half amp of Narcan, which did allow for resumption of reasonable ventilations, it is noted. The scope upon withdrawal of the cecum showed no sign of abnormality until approximately 40 cm from the anal verge, where an area of thickened mucosa was noted. Narrow band imaging and other imaging techniques were used to better characterize to see if that represented a flat polyp or not. At minimum, there was hyperplasia. On that basis, biopsies were obtained. The scope was then withdrawn further showing no other abnormality of concern. There were a few diverticula. Retroflexed view was normal. The scope was removed and the patient was taken to recovery room in good condition. CONCLUDING DIAGNOSIS: Essentially normal at this time; await biopsy results from 40 cm showing hyperplasia. If adenomatous changes are noted at 40 cm, then repeat prompt colonoscopy will be required using mucosal lift technique and a mucosal resection. PLAN: He will return to the ongoing care of his primary provider Dr. Babar Alex. We would recommend repeat colonoscopy in one year based on current guidelines for Saba syndrome. Jorge A Tinsley MD JM/MODL /[id number] Copies: ~ Electronically Signed By: JORGE A TINSLEY MD 05/04/22 1039 PATIENT NAME: AMANDEEP ANDERSON OPERATIVE REPORT DATE OF : 42 REPORT #: [id number] PHYSICIAN: JORGE A TINSLEY MD PCP: BABAR ALEX MD REPORT IS CONFIDENTIAL AND NOT TO BE RELEASED WITHOUT AUTHORIZATION
--- NOTE | 2022-05-11 09:03 | PATH ---
[facility] [facility] [address] [place], [place] [address] Signed SPECIMEN(S): A BIOPSY AT 40 CM SPECIMEN SOURCE: A. BIOPSY AT 40 CM CLINICAL HISTORY: Family history of hereditary nonpolyposis colon CA; Saba syndrome/hyperplastic mucosa at 40 cm. Assess for flat polyp. FINAL PATHOLOGIC DIAGNOSIS: Colon, 40 cm, biopsy: - Benign colonic mucosa with prominent intramucosal lymphoid aggregate. - No evidence of neoplasia. COMMENT: Sections of colonic tissue demonstrate a benign intramucosal lymphoid aggregate. Intramucosal lymphoid aggregates can sometimes appear as polyps endoscopically. They have no clinical significance. There is no evidence of dysplasia or malignancy. TWK:cheng:C2NR MICROSCOPIC EXAMINATION: Histologic sections of all submitted blocks are examined by light microscopy. These findings, together with the gross examination, support the pathologic diagnosis. GROSS DESCRIPTION: The specimen, labeled and designated "Jhon, colon biopsy at 40 cm," is received in formalin and consists of two loving soft tissue fragments, ranging from 0.2-0.3 cm. Entirely submitted in (A1). VB (under the direct supervision of a pathologist) The Gross Description was prepared using a voice recognition system. The report was reviewed for accuracy; however, sound-alike word errors, addition and/or deletions may occur. If there is any question about this report, please contact Client Services. PERFORMING LABORATORY: The technical component was performed by [employer], [address] [place] [id number] (CLIA# [id number]). The professional interpretation was performed by [facility], [facility], [address] [place] [address] (CLIA#: PATIENT NAME: AMANDEEP ANDERSON PATHOLOGY DATE OF : 42 REPORT #: [id number] PHYSICIAN: EDDA PATHOLOGY PCP: RENETTA MOYER MD REPORT IS CONFIDENTIAL AND NOT TO BE RELEASED WITHOUT AUTHORIZATION [facility] [address] [place], [place] [address] Signed [id number]). Diagnostician: Saul Adams MD Pathologist Electronically Signed 05/11/2022 Copies: ~ PATIENT NAME: AMANDEEP ANDERSON PATHOLOGY DATE OF : 42 REPORT #: [id number] PHYSICIAN: EDDA PATHOLOGY PCP: RENETTA MOYER MD REPORT IS CONFIDENTIAL AND NOT TO BE RELEASED WITHOUT AUTHORIZATION
== END 2022-05-03 17:21 | disposition home or self-care (01) ==
LOC: OPS 12:04 → DS 12:04 → OPS 14:00
PROVIDERS: ATTEND Surgery
PROC: 0DBE8ZX Excision of Large Intestine, Via Natural or Artificial Opening Endoscopic, Diagnostic (ICD-10-PCS; principal; 2022-05-03 14:00)
DX: Z12.11 Encounter for screening for malignant neoplasm of colon (principal); K63.89 Other specified diseases of intestine; Z80.0 Family history of malignant neoplasm of digestive organs; C19 Malignant neoplasm of rectosigmoid junction; Z15.09 Genetic susceptibility to other malignant neoplasm
CPT/HCPCS: 88305; 99153; G0500; J2250; J3010; J7121

== ENCOUNTER 2022-12-14 13:44 | Inpatient (IN) | payer OTHER, MEDICARE ==
[~2022-12-14] VITALS: Ht 172.7 cm; Wt 92.0 kg
[~2022-12-14 13:44] MED LIST changes: -FLOVENT HFA10.6 GM INH; +FLUTICASONE PRO16 GM NAS
[2022-12-14 14:16] LABS: BASOPHILS 0.5 % (0-2); HEMATOCRIT 45.9 % (35.0-50.0); LYMPHOCYTES 9.9 % (24-44); MCHC 32.7 g/dl (30-36); MCV 94.9 fl (81-99); MONOCYTES 9.8 % (0-12); NEUTROPHILS 78.8 % (39-80); PLATELET COUNT 246 K/uL (140-440); RBC 4.84 M/ul (4.3-5.7); RDW 14.1 (10.5-15.0)
[2022-12-14 14:28] LABS: LACTIC ACID, BLOOD 1.3 mmol/L (0.4-2.0)
[2022-12-14 14:29] LABS: ALBUMIN 3.7 g/dL (3.4-5.0); ALBUMIN/GLOBULIN RATIO 0.95 (1.1-2.4); ANION GAP 12.9 (7-21); BILIRUBIN, TOTAL 0.9 ng/dL (0.2-1.0); BUN/CREATININE RATIO 9.64 (6.0-28.6); CALCIUM 9.5 mg/dL (8.5-10.1); CREATININE, SERUM 1.14 mg/dL (0.70-1.30); POTASSIUM 3.9 mmol/L (3.5-5.1); PROTEIN, TOTAL 7.6 g/dL (6.4-8.2)
[2022-12-14 14:38] LABS: INFLUENZA B NAA NEGATIVE (NEGATIVE); RESPIRATORY SYNCYTIAL VIR NAA NEGATIVE (NEGATIVE)
[2022-12-14 16:14] LABS: BILIRUBIN, URINE NEGATIVE (negative); BLOOD/HGB, URINE NEGATIVE (Negative); KETONE, URINE NEGATIVE (Negative); LEUK ESTERASE, URINE NEGATIVE (negative); NITRITE, URINE NEGATIVE (negative); PH, URINE 5.5 (5-7)
[2022-12-14 20:21] VITALS: BP 129/64
[2022-12-14 21:00] VITALS: BP 124/74
[2022-12-14 22:00] VITALS: BP 107/53
--- NOTE | 2022-12-14 22:09 | EKG ---
[facility] [address] [facility] [place] [address] Signed Sinus tachycardia Nonspecific T wave abnormality Abnormal ECG When compared with ECG of 25-AUG-2021 10:27, Nonspecific T wave abnormality has replaced inverted T waves in Anterior leads Confirmed by Kathi Webb MD () on 12/14/2022 10:09:17 PM Electronically Signed By: KATHI WEBB MD 12/14/22 2209 PATIENT NAME: AMANDEEP ANDERSON ANNI Electrocardiogram DATE OF : 42 PHYSICIAN: KATHI WEBB MD REPORT #: [id number] REPORT IS CONFIDENTIAL AND NOT TO BE RELEASED WITHOUT AUTHORIZATION
[2022-12-15] VITALS (11 sets, daily range): BP systolic 96–142; BP diastolic 53–82
[2022-12-15 05:47] LABS: BASOPHILS 0.5 % (0-2); HEMATOCRIT 40.6 % (35.0-50.0); HEMOGLOBIN 13.7 g/dL (12.0-18.0); LYMPHOCYTES 8.3 % (24-44); MCH 31.7 (27-36); MCHC 33.9 g/dl (30-36); MCV 93.7 fl (81-99); MONOCYTES 9.2 % (0-12); PLATELET COUNT 221 K/uL (140-440); RBC 4.33 M/ul (4.3-5.7); RDW 14.3 (10.5-15.0)
[2022-12-15 06:04] LABS: ALBUMIN 3.1 g/dL (3.4-5.0); ALBUMIN/GLOBULIN RATIO 0.86 (1.1-2.4); ANION GAP 10.9 (7-21); BILIRUBIN, TOTAL 0.4 ng/dL (0.2-1.0); BUN/CREATININE RATIO 14.03 (6.0-28.6); CALCIUM 9.1 mg/dL (8.5-10.1); CREATININE, SERUM 1.14 mg/dL (0.70-1.30); MAGNESIUM 1.7 mg/dL (1.8-2.4); PHOSPHORUS, INORGANIC 2.3 mg/dL (2.5-4.9); POTASSIUM 3.9 mmol/L (3.5-5.1); PROTEIN, TOTAL 6.7 g/dL (6.4-8.2)
[2022-12-15] MEDS ORDERED: LOSARTAN POTASS50 MG PO (17:00)
[2022-12-16 02:05] VITALS: BP 108/78
[2022-12-16 05:49] LABS: BASOPHILS 0.3 % (0-2); HEMATOCRIT 40.4 % (35.0-50.0); HEMOGLOBIN 13.5 g/dL (12.0-18.0); LYMPHOCYTES 13.2 % (24-44); MCH 31.3 (27-36); MCHC 33.4 g/dl (30-36); MCV 93.6 fl (81-99); MONOCYTES 9.7 % (0-12); NEUTROPHILS 76.8 % (39-80); PLATELET COUNT 227 K/uL (140-440); RBC 4.32 M/ul (4.3-5.7)
[2022-12-16 06:03] LABS: ALBUMIN/GLOBULIN RATIO 0.88 (1.1-2.4); ANION GAP 13.2 (7-21); BILIRUBIN, TOTAL 0.4 ng/dL (0.2-1.0); BUN/CREATININE RATIO 19.19 (6.0-28.6); CREATININE, SERUM 0.99 mg/dL (0.70-1.30); POTASSIUM 4.2 mmol/L (3.5-5.1); PROTEIN, TOTAL 6.4 g/dL (6.4-8.2)
[2022-12-16 09:16] LABS: MAGNESIUM 2.1 mg/dL (1.8-2.4); PHOSPHORUS, INORGANIC 4.1 mg/dL (2.5-4.9)
[2022-12-16 09:28] VITALS: BP 118/61
[2022-12-16] MEDS ORDERED: PREDNISONE20 MG PO (09:53)
[2022-12-16] MEDS ORDERED: BENZONATATE100 MG PO (09:54)
[2022-12-16 12:13] VITALS: BP 123/66
== END 2022-12-16 12:50 | disposition home or self-care (01) | DRG 177 ==
LOC: ED 13:44 → CCU 19:21
PROVIDERS: Internal Medicine; ADMIT Family Medicine; ATTEND Family Medicine
PROC: 5A0935A Assistance with Respiratory Ventilation, Less than 24 Consecutive Hours, High Flow/Velocity Cannula (ICD-10-PCS; principal; 2022-12-14)
PROC: XW033E5 Introduction of Remdesivir Anti-infective into Peripheral Vein, Percutaneous Approach, New Technology Group 5 (ICD-10-PCS; 2022-12-14)
PROC: 3E0333Z Introduction of Anti-inflammatory into Peripheral Vein, Percutaneous Approach (ICD-10-PCS; 2022-12-14)
DX: U07.1 COVID-19 (principal); J96.01 Acute respiratory failure with hypoxia; I10 Essential (primary) hypertension; J45.909 Unspecified asthma, uncomplicated; E83.42 Hypomagnesemia; E83.39 Other disorders of phosphorus metabolism; I25.10 Atherosclerotic heart disease of native coronary artery without angina pectoris; Z98.890 Other specified postprocedural states; Z79.82 Long term (current) use of aspirin; Z79.899 Other long term (current) drug therapy; Z91.038 Other insect allergy status; Z88.1 Allergy status to other antibiotic agents; Z88.5 Allergy status to narcotic agent; Z88.8 Allergy status to other drugs, medicaments and biological substances
CPT/HCPCS: 36415; 71045; 80053; 81003; 83605; 83690; 83735; 84100; 84484; 85025; 87502; 93005; 93010; 94761; 96365; 96366; 96375; 99285-25; A9270; J0248; J0696; J0780; J1100; J1650; J2405; J7050; U0002

== ENCOUNTER 2023-11-04 19:13 | Emergency (ER) | payer MEDICARE, OTHER ==
[~2023-11-04] VITALS: Ht 175.3 cm; Wt 92.2 kg
[~2023-11-04 19:13] MED LIST changes: +IRBESARTAN75 MG PO; +LOSARTAN POTASS50 MG PO
[2023-11-04 19:30] LABS: HEMOGLOBIN 14.7 g/dL (12.0-18.0)
[2023-11-04] MEDS ORDERED: ondansetron HCL 4 MG/2 ML VIAL IV ONE (19:30)
[2023-11-04 19:32] LABS: BASOPHILS 0.8 % (0-2); EOSINOPHILS 1.8 % (0-6); HEMATOCRIT 44.4 % (35.0-50.0); LYMPHOCYTES 27.4 % (24-44); MCH 30.8 (27-36); MCHC 33.1 g/dl (30-36); MCV 93.1 fl (81-99); MONOCYTES 10.3 % (0-12); NEUTROPHILS 59.7 % (39-80); PLATELET COUNT 250 K/uL (140-440); RBC 4.76 M/ul (4.3-5.7); RDW 14.8 (10.5-15.0)
[2023-11-04 19:45] LABS: ALBUMIN 3.6 g/dL (3.4-5.0); ALBUMIN/GLOBULIN RATIO 0.97 (1.1-2.4); ANION GAP 12.5 (7-21); BILIRUBIN, TOTAL 0.8 ng/dL (0.2-1.0); BUN/CREATININE RATIO 12.82 (6.0-28.6); CALCIUM 9.9 mg/dL (8.5-10.1); CREATININE, SERUM 1.17 mg/dL (0.70-1.30); MAGNESIUM 1.7 mg/dL (1.8-2.4); POTASSIUM 3.5 mmol/L (3.5-5.1); PROTEIN, TOTAL 7.3 g/dL (6.4-8.2)
[2023-11-04 19:48] LABS: BILIRUBIN, URINE NEGATIVE (negative); BLOOD/HGB, URINE NEGATIVE (Negative); KETONE, URINE NEGATIVE (Negative); LEUK ESTERASE, URINE NEGATIVE (negative); NITRITE, URINE NEGATIVE (negative)
[2023-11-04] MEDS ORDERED: ONDANSETRON ODT8 MG PO (21:36)
[2023-11-04] MEDS ORDERED: ONDANSETRON 4 MG HOME.PACK SL ONE (21:45)
[2023-11-04 21:48] VITALS: BP 152/83
== END 2023-11-04 21:50 | disposition home or self-care (01) ==
LOC: ED 19:13
PROVIDERS: Emergency Medicine
DX: K29.00 Acute gastritis without bleeding (principal); I10 Essential (primary) hypertension; Z95.1 Presence of aortocoronary bypass graft; Z91.030 Bee allergy status; Z88.8 Allergy status to other drugs, medicaments and biological substances; Z88.5 Allergy status to narcotic agent; Z91.09 Other allergy status, other than to drugs and biological substances; Z79.899 Other long term (current) drug therapy; Z79.82 Long term (current) use of aspirin
CPT/HCPCS: 36415; 80053; 81003; 83690; 83735; 85025; 96374; 99284-25; A9270; J2405

== ENCOUNTER 2023-11-17 22:00 | Emergency (ER) | payer MEDICARE, OTHER ==
[~2023-11-17] VITALS: Ht 175.3 cm; Wt 90.0 kg
[~2023-11-17 22:00] MED LIST changes: +ONDANSETRON ODT8 MG PO
--- OUTSIDE RECORDS SUMMARY | 2023-11-17 22:05 | XMS ---
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 E[facility] has no Care Guidelines for this patient. [place] [facility] (12 MO[address] [facility] NOTE: Visits indicate total known visits. ED/C VISIT TRACKING (12 MO.) 11/17/2023 22:[address] [facility] [place] TYPE: Emergency COMPLAINT: - VOMITING 11/04/2023 19:13 [facility] [place] TYPE: Emergency COMPLAINT: - VOMITING DIAGNOSES: - Acute gastritis without bleeding - Allergy status to narcotic agent - Allergy status to other drugs, medicaments and biological substances - Bee allergy status - Essential (primary) hypertension - half-way (current) use of aspirin - Nausea with vomiting, unspecified - Other allergy status, other than to drugs and biological substances - Other [facility] (current) drug therapy - Presence of aortocoronary bypass graft 12/14/2022 13:44 [facility] [place] TYPE: Emergency COMPLAINT: - FLU SYMPTONS INPATIENT VISIT TRACKING (12 MO.) 12/14/2022 19:21 [facility] [place] TYPE: Critical Care COMPLAINT: - COVID DIAGNOSES: - Acute respiratory failure with hypoxia - Acute respiratory failure with hypoxia - Allergy status to narcotic agent - Allergy status to narcotic agent - Allergy status to other antibiotic agents - Allergy status to other antibiotic agents - Allergy status to other drugs, medicaments and biological substances - Allergy status to other drugs, medicaments and biological substances - Atherosclerotic heart disease of [place] coronary artery without angina pectoris - Atherosclerotic heart disease of [place] coronary artery without angina pectoris - COVID-19 - Essential (primary) hypertension - Essential (primary) hypertension - Hypomagnesemia - Hypomagnesemia - half-way (current) use of aspirin - half-way (current) use of aspirin - Other disorders of phosphorus metabolism - Other disorders of phosphorus metabolism - Other insect allergy status - Other insect allergy status - Other long term care social worker (current) drug therapy - Other [facility] (current) drug therapy - Other specified postprocedural states - Other specified postprocedural states - Unspecified asthma, uncomplicated - Unspecified asthma, uncomplicated [email or web address]
[2023-11-17] MEDS ORDERED: MORPHINE SULFATE 4 MG/ML VIAL IV ONE (22:15)
[2023-11-17] MEDS ORDERED: ondansetron HCL 4 MG/2 ML VIAL IV ONE (22:15)
[2023-11-17] MEDS ORDERED: SODIUM CHLORIDE 0.9% 1,000 ML IV ONE (22:15)
[2023-11-17 22:34] LABS: ALBUMIN 3.5 g/dL (3.4-5.0); ALBUMIN/GLOBULIN RATIO 0.92 (1.1-2.4); ANION GAP 10.8 (7-21); BILIRUBIN, TOTAL 0.6 ng/dL (0.2-1.0); BUN/CREATININE RATIO 9.67 (6.0-28.6); CALCIUM 9.5 mg/dL (8.5-10.1); CREATININE, SERUM 1.24 mg/dL (0.70-1.30); POTASSIUM 3.8 mmol/L (3.5-5.1); PROTEIN, TOTAL 7.3 g/dL (6.4-8.2)
[2023-11-17 22:39] LABS: BASOPHILS 0.7 % (0-2); EOSINOPHILS 2.4 % (0-6); HEMATOCRIT 40.1 % (35.0-50.0); HEMOGLOBIN 13.5 g/dL (12.0-18.0); LYMPHOCYTES 21.8 % (24-44); MCH 30.9 (27-36); MCHC 33.7 g/dl (30-36); MCV 91.8 fl (81-99); MONOCYTES 12.1 % (0-12); PLATELET COUNT 257 K/uL (140-440); RBC 4.37 M/ul (4.3-5.7); RDW 14.4 (10.5-15.0)
[2023-11-17] MEDS ORDERED: ONDANSETRON ODT8 MG PO (23:54)
[2023-11-17] MEDS ORDERED: LEVSIN-SL0.125 MG SL (23:54)
[2023-11-18] MEDS ORDERED: ONDANSETRON 4 MG HOME.PACK SL ONE (00:15)
[2023-11-18 00:19] VITALS: BP 127/82
== END 2023-11-18 01:34 | disposition home or self-care (01) ==
LOC: ED 22:00
PROVIDERS: Family Medicine
DX: K52.9 Noninfective gastroenteritis and colitis, unspecified (principal); N28.1 Cyst of kidney, acquired; I10 Essential (primary) hypertension; J45.909 Unspecified asthma, uncomplicated; Z95.1 Presence of aortocoronary bypass graft; Z91.038 Other insect allergy status; Z88.1 Allergy status to other antibiotic agents; Z88.8 Allergy status to other drugs, medicaments and biological substances; Z88.5 Allergy status to narcotic agent; Z79.82 Long term (current) use of aspirin; Z79.899 Other long term (current) drug therapy
CPT/HCPCS: 74177; 80053; 83690; 85025; 99284-25; A9270; J2405; J7030; Q9967

== ENCOUNTER 2023-11-23 09:52 | Emergency (ER) | payer MEDICARE, OTHER ==
[~2023-11-23] VITALS: Ht 175.3 cm; Wt 92.1 kg
[~2023-11-23 09:52] MED LIST changes: +LEVSIN-SL0.125 MG SL
--- OUTSIDE RECORDS SUMMARY | 2023-11-23 09:54 | XMS ---
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 Ermias has no Care Guidelines for this patient. Daqu[place] VISIT COUNT (12 MO.) [address] [facility] [place] TOTAL 4 NOTE: Visits indicate total known visits. ED/C VISIT TRACKING (12 MO.) 11/23/2023 09:53 [facility] [place] TYPE: Emergency COMPLAINT: - WEAKNESS 11/17/2023 22:00 [facility] [place] TYPE: Emergency COMPLAINT: - VOMITING DIAGNOSES: - Allergy status to narcotic agent - Allergy status to other antibiotic agents - Allergy status to other drugs, medicaments and biological substances - Cyst of kidney, acquired - Essential (primary) hypertension - bed bug exterminator (current) use of aspirin - Nausea with vomiting, unspecified - Noninfective gastroenteritis and colitis, unspecified - Other insect allergy status - Other [place] [facility] ([facility] drug therapy - Presence of aortocoronary bypass graft - Unspecified asthma, uncomplicated 11/04/2023 19:13 [facility] [place] TYPE: Emergency COMPLAINT: - VOMITING DIAGNOSES: - Acute gastritis without bleeding - Allergy status to narcotic agent - Allergy status to other drugs, medicaments and biological substances - Bee allergy status - Essential (primary) hypertension - bed bug exterminator (current) use of aspirin - Nausea with vomiting, unspecified - Other allergy status, other than to drugs and biological substances - Other [place] [facility] (current) drug therapy - Presence of aortocoronary [...] biological substances - Atherosclerotic heart disease of [place] coronary artery without angina pectoris - Atherosclerotic heart disease of [place] coronary artery without angina pectoris - COVID-19 - Essential (primary) hypertension - Essential (primary) hypertension - Hypomagnesemia - Hypomagnesemia - snf (current) use of aspirin - snf (current) use of aspirin - Other disorders of phosphorus metabolism - Other disorders of phosphorus metabolism - Other insect allergy status - Other insect allergy status - Other [place] [facility] [place] drug therapy - Other [place] [facility] (current) drug therapy - Other specified postprocedural states - Other specified postprocedural states - Unspecified asthma, uncomplicated - Unspecified asthma, uncomplicated [email or web address]
[2023-11-23] MEDS ORDERED: SODIUM CHLORIDE 0.9% 500 ML IV ONE (10:30)
[2023-11-23 10:49] LABS: BASOPHILS 0.7 % (0-2); EOSINOPHILS 0.6 % (0-6); HEMATOCRIT 45.7 % (35.0-50.0); LYMPHOCYTES 12.2 % (24-44); MCH 30.9 (27-36); MCHC 32.9 g/dl (30-36); MONOCYTES 11.7 % (0-12); NEUTROPHILS 74.8 % (39-80); PLATELET COUNT 237 K/uL (140-440); RBC 4.86 M/ul (4.3-5.7); RDW 14.6 (10.5-15.0)
[2023-11-23 11:06] LABS: ALBUMIN 3.5 g/dL (3.4-5.0); ANION GAP 16.3 (7-21); BILIRUBIN, TOTAL 0.6 ng/dL (0.2-1.0); BUN/CREATININE RATIO 6.32 (6.0-28.6); CALCIUM 10.8 mg/dL (8.5-10.1); CREATININE, SERUM 1.58 mg/dL (0.70-1.30); POTASSIUM 4.3 mmol/L (3.5-5.1)
[2023-11-23 12:39] LABS: BILIRUBIN, URINE NEGATIVE (negative); BLOOD/HGB, URINE TRACE-I (Negative); KETONE, URINE TRACE (Negative); LEUK ESTERASE, URINE NEGATIVE (negative); NITRITE, URINE NEGATIVE (negative)
[2023-11-23 12:50] LABS: BACTERIA, URINE NONE SEEN /hpf (negative); COLLECTION TYPE, URINE CLEAN CATCH; CRYSTALS, URINE NONE SEEN (0-1+); EPITHELIAL CELLS, URINE SQUAMOUS 1+ /lpf (0-1+); REFLEX CULTURE, URINE No (No); WHITE BLOOD CELLS, URINE 0-1 /HPF (0-5)
[2023-11-23 13:22] VITALS: BP 161/88
--- NOTE | 2023-11-23 21:39 | EKG ---
[facility] [address] [facility] [place] [address] Signed Normal sinus rhythm T wave abnormality, consider anterior ischemia Abnormal ECG When compared with ECG of 14-DEC-2022 13:49, Inverted T waves have replaced nonspecific T wave abnormality in Anterior leads Confirmed by Kathi Webb MD () on 11/23/2023 9:39:16 PM Electronically Signed By: KATHI WEBB MD 11/23/23 2139 PATIENT NAME: AMANDEEP ANDERSON ANNI Electrocardiogram DATE OF : 42 PHYSICIAN: KATHI WEBB MD REPORT #: [id number] REPORT IS CONFIDENTIAL AND NOT TO BE RELEASED WITHOUT AUTHORIZATION
== END 2023-11-23 13:22 | disposition home or self-care (01) ==
LOC: ED 09:52
PROVIDERS: Emergency Medicine
DX: E86.0 Dehydration (principal); I25.2 Old myocardial infarction; I10 Essential (primary) hypertension; Z95.1 Presence of aortocoronary bypass graft; Z91.030 Bee allergy status; Z91.09 Other allergy status, other than to drugs and biological substances; Z88.5 Allergy status to narcotic agent; Z88.8 Allergy status to other drugs, medicaments and biological substances; Z79.82 Long term (current) use of aspirin; Z79.899 Other long term (current) drug therapy
CPT/HCPCS: 36415; 71045; 80053; 81001; 83690; 83735; 84484; 85025; 93005; 93010; 96360; 96361; 99285-25; J7040; U0002

== ENCOUNTER 2024-04-20 12:47 | Emergency (ER) | payer OTHER, MEDICARE ==
[~2024-04-20] VITALS: Ht 175.3 cm; Wt 88.5 kg
[2024-04-20] MEDS ORDERED: FLUTICASONE PRO16 GM NAS (13:04)
[2024-04-20 13:18] LABS: BASOPHILS 0.8 % (0-2); EOSINOPHILS 2.3 % (0-6); HEMATOCRIT 50.2 % (35.0-50.0); LYMPHOCYTES 21.8 % (24-44); MCH 31.7 (27-36); MCHC 33.9 g/dl (30-36); MCV 93.3 fl (81-99); NEUTROPHILS 66.1 % (39-80); PLATELET COUNT 291 K/uL (140-440); RBC 5.38 M/ul (4.3-5.7); RDW 14.7 (10.5-15.0)
[2024-04-20 13:27] LABS: ALBUMIN/GLOBULIN RATIO 0.93 (1.1-2.4); ANION GAP 17.9 (7-21); BUN/CREATININE RATIO 9.92 (6.0-28.6); CALCIUM 10.6 mg/dL (8.5-10.1); CREATININE, SERUM 1.41 mg/dL (0.70-1.30); POTASSIUM 3.9 mmol/L (3.5-5.1); PROTEIN, TOTAL 8.3 g/dL (6.4-8.2)
[2024-04-20 17:00] VITALS: BP 128/80
== END 2024-04-20 18:21 | disposition home or self-care (01) ==
LOC: ED 12:47
PROVIDERS: Emergency Medicine
DX: Z04.3 Encounter for examination and observation following other accident (principal); I10 Essential (primary) hypertension; J45.909 Unspecified asthma, uncomplicated; Z88.1 Allergy status to other antibiotic agents; Z88.5 Allergy status to narcotic agent; Z88.8 Allergy status to other drugs, medicaments and biological substances; Z91.038 Other insect allergy status; Z79.82 Long term (current) use of aspirin; Z79.51 Long term (current) use of inhaled steroids; Z79.899 Other long term (current) drug therapy; W00.0XXA Fall on same level due to ice and snow, initial encounter
CPT/HCPCS: 36415; 80053; 85025; 99283

== ENCOUNTER 2024-05-17 02:49 | Inpatient (IN) | payer MEDICARE, OTHER ==
[2024-05-17] VITALS (8 sets, daily range): BP systolic 114–141; BP diastolic 61–75
[~2024-05-17] VITALS: Ht 175.3 cm; Wt 86.4 kg
[~2024-05-17 02:49] MED LIST changes: +ADULT LOW DOSE81 MG PO
--- OUTSIDE RECORDS SUMMARY | 2024-05-17 02:56 | XMS ---
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 Ermias has no Care Guidelines for this patient. [place] VISIT COUNT (12 MO.) 5 [facility] [address] [place] TOTAL 5 NOTE: Visits indicate total known visits. ED/C VISIT TRACKING (12 MO.) 05/17/2024 02:49 [facility] TYPE: Emergency COMPLAINT: - VOMITING 04/20/2024 12:47 [facility] [place] TYPE: Emergency COMPLAINT: - FALL DIAGNOSES: - Allergy status to narcotic agent - Allergy status to other antibiotic agents - Allergy status to other drugs, medicaments and biological substances - Encounter for examination and observation following other accident - Essential (primary) hypertension - Fall on same level due to ice and snow, initial encounter - vermin exterminator (current) use of aspirin - vermin exterminator (current) use of inhaled steroids - Other insect allergy status - Other intermission coordinator (current) drug therapy - Unspecified asthma, uncomplicated 11/23/2023 09:53 [facility] [place] TYPE: Emergency COMPLAINT: - WEAKNESS DIAGNOSES: - Allergy status to narcotic agent - Allergy status to other drugs, medicaments and biological substances - Bee allergy status - Dehydration - Essential (primary) hypertension - vermin exterminator (current) use of aspirin - Old myocardial infarction - Other allergy status, other than to drugs and biological substances - Other intermission coordinator (current) drug therapy - Presence of aortocoronary bypass graft - Weakness 11/17/2023 22:00 [facility] [place] TYPE: Emergency COMPLAINT: - VOMITING DIAGNOSES: - Allergy status to narcotic agent - Allergy status to other antibiotic agents - Allergy status to other drugs, medicaments and biological substances - Cyst of kidney, acquired - Essential (primary) hypertension - USP (current) use of aspirin - Nausea with vomiting, unspecified - Noninfective gastroenteritis and colitis, unspecified - Other insect allergy status - Other snf (current) drug therapy - Presence of aortocoronary bypass graft - Unspecified asthma, uncomplicated 11/04/2023 19:[address] [facility] [place] TYPE: Emergency COMPLAINT: - VOMITING DIAGNOSES: - Acute gastritis without bleeding - Allergy status to narcotic agent - Allergy status to other drugs, medicaments and biological substances - Bee allergy status - Essential (primary) hypertension - vermin exterminator (current) use of aspirin - Nausea with vomiting, unspecified - Other allergy status, other than to drugs and biological substances - Other snf (current) drug therapy - Presence of aortocoronary bypass graft INPATIENT VISIT TRACKING (12 MO.) No inpatient visits to display in this time frame [email or web address]
[2024-05-17] MEDS ORDERED: ondansetron HCL 4 MG/2 ML VIAL IV ONE (03:15)
[2024-05-17] MEDS ORDERED: FAMOTIDINE 20 MG/ 2 ML VIAL IV ONE (03:15)
[2024-05-17 03:17] LABS: BASOPHILS 0.7 % (0-2); EOSINOPHILS 1.8 % (0-6); HEMATOCRIT 47.7 % (35.0-50.0); HEMOGLOBIN 16.5 g/dL (12.0-18.0); LYMPHOCYTES 21.6 % (24-44); MCHC 34.6 g/dl (30-36); MCV 92.3 fl (81-99); MONOCYTES 10.8 % (0-12); NEUTROPHILS 65.1 % (39-80); PLATELET COUNT 297 K/uL (140-440); RBC 5.16 M/ul (4.3-5.7); RDW 14.3 (10.5-15.0)
[2024-05-17] MEDS ORDERED: LACTATED RINGER'S 1,000 ML IV ONE (03:30)
[2024-05-17 03:31] LABS: ALBUMIN 4.1 g/dL (3.4-5.0); ALBUMIN/GLOBULIN RATIO 0.98 (1.1-2.4); ANION GAP 8.4 (7-21); BUN/CREATININE RATIO 13.04 (6.0-28.6); CALCIUM 11.1 mg/dL (8.5-10.1); CREATININE, SERUM 1.15 mg/dL (0.70-1.30); POTASSIUM 3.4 mmol/L (3.5-5.1); PROTEIN, TOTAL 8.3 g/dL (6.4-8.2)
[2024-05-17 03:41] LABS: CORONAVIRUS COVID-19 AG NEGATIVE (NEGATIVE); INFLUENZA A AG NEGATIVE (NEGATIVE); INFLUENZA B AG NEGATIVE (NEGATIVE)
[2024-05-17] MEDS ORDERED: NITROGLYCERIN 0.4 MG SUBL SL ONE (04:00)
[2024-05-17 04:21] LABS: BILIRUBIN, URINE NEGATIVE (negative); BLOOD/HGB, URINE NEGATIVE (Negative); KETONE, URINE NEGATIVE (Negative); LEUK ESTERASE, URINE NEGATIVE (negative); NITRITE, URINE NEGATIVE (negative); PH, URINE 6.5 (5-7)
[2024-05-17 04:27] LABS: BACTERIA, URINE RARE /hpf (negative); CASTS, URINE NONE SEEN \\lpf; COLLECTION TYPE, URINE CLEAN CATCH; CRYSTALS, URINE NONE SEEN (0-1+); EPITHELIAL CELLS, URINE 0 /lpf (0-1+); RED BLOOD CELLS, URINE 0-1 /hpf (0-5); REFLEX CULTURE, URINE No (No); WHITE BLOOD CELLS, URINE 0-1 /HPF (0-5)
[2024-05-17] MEDS ORDERED: GLYCERIN 2 GM SUPP PR ONE (04:45)
[2024-05-17] MEDS ORDERED: LACTATED RINGER'S 1,000 ML IV SCH ×2 (07:00→07:30)
[2024-05-17] MEDS ORDERED: ondansetron HCL 4 MG/2 ML VIAL IV PRN ×2 (07:30→10:15)
--- NOTE | 2024-05-17 08:00 | NUR ---
REPORT RECEIVED FROM MALIK POSEY IN THE EMERGENCY DEPARTMENT. PT TRANSPORTED VIA STRETCHER FROM ED TO ROOM 116. WT OBTAINED, VS OBTAINED. PT SETTLED AND ORIENTED INTO ROOM AND FLOOR.
[2024-05-17] MEDS ORDERED: FAMOTIDINE 20 MG/ 2 ML VIAL IV SCH (09:00)
--- NOTE | 2024-05-17 09:00 | NUR ---
ADMISSION COMPLETE. PT RESTING IN BED IN NO DISTRESS AT THIS TIME. NG TO L NARE TO LOW/INTERMITTENT SUCTION HAS COFFEE GROUND COLOURED DRAINAGE. PT BOWEL TONES ARE HYPOACTIVE IN ALL FOUR QUADRANTS, NON-TENDER TO PALPATION. PT REPORTED NO NAUSEA AT THIS TIME BUT FREQUENTLY SPITTING INTO EMESIS BAG. PT REPORTS THAT HE FEELS THIRSTY. LEMON GLYCERIN SWABS PROVIDED. PT HAS NO OTHER REQUESTS AT THIS TIME, CALL LIGHT IN REACH.
--- NOTE | 2024-05-17 09:09 | NUR ---
MD NOTIFIED OF PTs MISSING ORDERS. THIS RN SPOKE WITH MALIK EVANS IN SURGERY. MD IS CURRENTLY IN A PROCEDURE. NO NEW ORDERS AT THIS TIME.
[2024-05-17] MEDS ORDERED: PANTOPRAZOLE SODIUM 40 MG/10 ML VIAL IV SCH (10:14)
[2024-05-17] MEDS ORDERED: ACETAMINOPHEN 650 MG SUPP PR PRN (10:15)
[2024-05-17] MEDS ORDERED: ACETAMINOPHEN 325 MG TAB PO PRN (10:15)
[2024-05-17] MEDS ORDERED: PROCHLORPERAZINE EDISYLATE 10 MG/2 ML VIAL IV PRN (10:15)
[2024-05-17] MEDS ORDERED: DEXTROSE 5% - LACTATED RINGERS 1,000 ML IV SCH (10:15)
[2024-05-17] MEDS ORDERED: HYDROmorphone HCL 1 MG/ML SYR IV PRN (10:15)
--- NOTE | 2024-05-17 10:15 | NUR ---
IN TO SEE PT. ALL QUESTIONS AND CONCERNS ADDRESSED. PT HAS NO REQUESTS AT THIS TIME. NG TUBE REMAINS LOW/INTERMITTENT SUCTION IN R NARE DRAINING COFFEE GROUND COLOURED FLUID. CALL LIGHT IN REACH.
[2024-05-17] MEDS ORDERED: DEXTROSE 5% - NACL 0.45% 1,000 ML IV SCH (10:30)
--- NOTE | 2024-05-17 11:00 | NUR ---
DAYANA GUTIERREZ IN ROOM TO APPLY SCDs.
--- NOTE | 2024-05-17 11:22 | NUR ---
MEDICATION ADMINISTERED, IVF CHANGED, SEE MAR. PT RESTING IN BED WATCHING TELEVISION. SCDs IN PLACE. NO NAUSEA, NO PAIN. NO REQUESTS AT THIS TIME. CALL LIGHT IN REACH.
--- NOTE | 2024-05-17 11:35 | NUR ---
MED REC COMPLETE
--- NOTE | 2024-05-17 12:00 | CONS ---
[facility] [address], [place] [address] Signed DATE OF CONSULTATION: 05/17/2024 CHIEF COMPLAINT: Nausea and vomiting. HISTORY OF PRESENT ILLNESS: Amandeep is an 84-year-old gentleman who woke up this morning about 1 hour prior to admission with nausea and vomiting. He drove himself to the emergency room. He explained that his daughter had been in the and was found to have Saba syndrome. 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 He said his dad when he was only 8 years old. His sister has a daughter who of the Saba syndrome. Amandeep has been undergoing annual colonoscopy with Dr. Luna and upper endoscopies every few years for many many years. He said he has never had any troubles in that regard. He has never had any previous abdominal surgeries. He did have open-heart surgery. When he came to the emergency room his white count was normal. Chest x-ray was unremarkable. He did have an ultrasound of the right upper quadrant and it showed a hepatic cyst, but the gallbladder was fine. The CT scan showed the air-fluid levels in the small bowel with what appears to be a transition point in the terminal ileum. Small bowel about 3.6 cm in diameter. I have been asked to admit him as a general surgeon on-call. They placed an NG tube and he has gotten out quite a bit of dark gastric fluid. Overall, he said he feels better. PAST MEDICAL HISTORY: Hypertension, asthma, Saba syndrome, left knee pain and coronary artery disease. PAST SURGICAL HISTORY: Includes the CABG x5 in 2011 along with annual colonoscopy with Dr. Luna and upper endoscopies every few years with Dr. Luna. SOCIAL HISTORY: He does not smoke or drink. Dr. Rick Guadarrama is his primary care provider. He prefers the [facility]. Maribel Salinas is his daughter who lives in [place], [place] at [phone]. He lives alone in [place]. He said he has some land out there. 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 FAMILY HISTORY: His dad, sister, niece and daughter all had Saba syndrome. REVIEW OF SYSTEMS: He had 10 systems reviewed and he had nothing new in that regard. ALLERGIES: Electronically Signed By: LETICIA CAST MD 05/17/24 [facility] PATIENT NAME: AMANDEEP ANDERSON CONSULTATION DATE OF : 42 REPORT #: [id number] PHYSICIAN: LETICIA CAST MD PCP: RICK GUADARRAMA DO REPORT IS CONFIDENTIAL AND NOT TO BE RELEASED WITHOUT AUTHORIZATION [facility] [address], [place] [address] Signed Lisinopril, hydrocodone, doxycycline, bees and insects. MEDICATIONS: Levsin, atorvastatin, Claritin, aspirin, irbesartan, fluticasone. PHYSICAL EXAMINATION: VITAL SIGNS: Blood pressure is 135/75, his heart rate is 80, respiratory rate 15, temperature is 98.3, he is 95% on room air. GENERAL: Amandeep is an 84-year-old gentleman lying supine in semi-recumbent in his hospital bed. He is alert, awake and interactive. He has the NG tube in place and it is fairly dark gastric fluid. He is in no acute distress. LUNGS: Clear to auscultation bilaterally. HEART: Regular rate and rhythm without murmurs. ABDOMEN: Mildly distended but soft without tympany. He has no peritoneal signs or symptoms. No obvious hernia. He does have some rash down in his groins. He said he has some nystatin cream at home. LABORATORY DATA: His white blood cell count 10.5, hemoglobin 16, neutrophils 65. Creatinine is 1.15. Troponin is negative. Urinalysis negative. The flu and COVID were negative. His calcium is a little high at 11.1, so a parathyroid hormone was sent. His AST, ALT are fine. Alkaline phosphatase up a little at 126, albumin is good at 4.1. His lipase is 40. EKG showed normal sinus rhythm. RADIOGRAPHIC STUDIES: A chest x-ray was unremarkable. Right upper quadrant ultrasound showed some hepatic cysts. The CT scan of abdomen and pelvis shows dilated small bowel at 3.6 cm with some air-fluid levels with a transition point in the terminal ileum, but no obvious hernias. ASSESSMENT AND PLAN: Amandeep is an 84-year-old gentleman who presents with what may be a bowel obstruction there in the terminal ileum. Based on his clinical and radiographic presentation. He has been admitted and we will treat him conservatively for now. He has his NG tube in place along with some IV fluids. He is well-versed on Saba syndrome and we had that discussion today as well. Hopefully this will resolve on its own. He has expressed understanding and agrees above plan. Leticia Cast MD ALB/MODL Electronically Signed By: LETICIA CAST MD 05/17/24 1200 PATIENT NAME: AMANDEEP ANDERSON ANNI CONSULTATION DATE OF : 42 REPORT #: [id number] PHYSICIAN: LETICIA CAST MD PCP: RICK GUADARRAMA DO REPORT IS CONFIDENTIAL AND NOT TO BE RELEASED WITHOUT AUTHORIZATION [address] [place] [address] Signed /[id number] cc: DO Leticia Dewey MD Copies: RICK GUADARRAMA ANDREW L MD ~ Electronically Signed By: LETICIA CAST MD 05/17/24 1200 PATIENT NAME: AMANDEEP ANDERSON CONSULTATION DATE OF : 42 REPORT #: [id number] PHYSICIAN: LETICIA CAST MD PCP: RICK GUADARRAMA DO REPORT IS CONFIDENTIAL AND NOT TO BE RELEASED WITHOUT AUTHORIZATION
--- NOTE | 2024-05-17 12:32 | NUR ---
NIO PLACED FOR DESENEX POWDER FOR REDNESS TO PTs GROIN. SEGUN AWARE.
--- NOTE | 2024-05-17 13:31 | NUR ---
PT RESTING IN BED WITH EYES CLOSED, RR EVEN AND UNLABORED. NG TUBE TO R NARE AT LOW/INTERMITTENT SUCTION DRAINING CLEAR/OFF-WHITE COLOURED FLUID. HOB ELEVATED. CALL LIGHT IN REACH.
--- NOTE | 2024-05-17 13:51 | NUR ---
UR CLINICAL REVIEW: 2MN VERSALUS, MEETS INPT FOR SMALL BOWEL OBSTRUCTION NG TUBE, NPO, IV FLUIDS, CT POSITIVE FOR PARIAL SMALL BOWEL OBSTRUCTION MEDICARE INPT 05/17/2024 @ 1016 ORDER MATCHES REG NO AUTH REQUIRED PER MEDICARE RULES DC TO HOME WHEN MEDICALLY STABLE.
--- NOTE | 2024-05-17 13:59 | NUR ---
PT AMBULATES ONE LAP IN HALLWAY, RETURNS TO ROOM AND SITS IN RECLINER. BLE ELEVATED. WAFFLE MATTRESS PLACED ON BED PER PTs REQUEST. PT REMAINS IN RECLINER, NG IN R NARE TO LOW/INTERMITTENT SUCTION.
--- NOTE | 2024-05-17 14:08 | NUR ---
PTs DAUGHTER "STEPHANIE" UPDATED ON PT PLAN OF CARE. ALL QUESTIONS AND CONCERNS ADDRESSED.
--- NOTE | 2024-05-17 16:00 | NUR ---
Spoke with with Andres. He lives in a house with 0 steps. He lives alone and his is in a senior care in [place]. He drives there weekly to see her. He does not use any DME. He has an NG in place. His daughter, demian is his emergency contact. He states he does his own household tasks, shopping, driving, cooking. He states he is fiancially well off and does not have concerns. He has a friend who could assist him if needed, but not daily. Pt is retired . He plans on dc to home when he is cleared medically.
--- NOTE | 2024-05-17 16:02 | NUR ---
PATIENT WAS IN THE CHAIR AT THIS TIME, PATIENT WANTED TO TAKE A WALK. SENIOR SALES ASSISTANT ASSISTED PATIENT WITH TWO LAPS AROUND THE NURSES STATION. ASSISTED PATIENT BACK TO BED AFTER THE WALK, CALL LIGHT WITH IN REACH. NOTHING ELSE NEEDED AT THIS TIME.
--- NOTE | 2024-05-17 16:12 | NUR ---
YOVANA FROM CASE MANAGEMENT IN TO SEE PT. PT NG TUBE RE-CONNECTED TO WALL SUCTION ON LOW/INTERMITTENT AFTER WALKING IN HALLS WITH DAYANA FRANK.
--- NOTE | 2024-05-17 17:54 | NUR ---
PT RESTING IN BED AWAKE AND ALERT. REPORTS HE IS FEELING THIRSTY AND A LITTLE HUNGRY. NG REMAINS TO R NARE WITH GREENISH-GALVAN OUTPUT NOTED IN CANNISTER AND TUBING. PT HAS NO REQUESTS AT THIS TIME, CALL LIGHT IN REACH.
--- NOTE | 2024-05-17 19:40 | NUR ---
REPORT RECEIVED FROM DAY SHIFT RN. PT LYING IN BED ALERT AND ORIENTED. DENIES NEEDS. WHITE BOARD UPDATED. CALL LIGHT IN REACH.
--- NOTE | 2024-05-17 20:00 | NUR ---
PATIENT SITITNG UP IN BED WITH Androcial HE IS WORKING ON. HE IS ALERT AND ORIENTED. HE REPORTS NO PAIN, NO NAUSEA. NGT TO L.I.S. PATENT, LIGHT GREEN GASTRIC CONTENT IN APPEARANCE.
[2024-05-17] MEDS ORDERED: MICONAZOLE NITRATE 1 EA BTL TOP SCH (21:00)
--- NOTE | 2024-05-17 21:38 | NUR ---
SENIOR SALESFORCE DEVELOPER OBTAINED VITALS AND OUTPUT. PT PLACED ON CPOX. PT STATES NO FURTHER NEEDS AT THIS TIME. CALL LIGHT WITHIN REACH.
--- NOTE | 2024-05-17 22:48 | NUR ---
CALL LIGHT ANSWERED. PT NEEDED TO USE BATHROOM AND WANTED TO GET BACK INTO BED. GRAIN DISTRIBUTOR SBA PT TO BATHROOM. PT VOIDED AND ASSISTED TO BED. CPOX RECONNECTED AND NG TUBE REATTACHED TO SUCTION. SCDS BACK ON AND PT STATES NO FURTHER NEEDS AT THIS TIME. CALL LIGHT WITHIN REACH.
[2024-05-18] VITALS (10 sets, daily range): BP systolic 99–131; BP diastolic 55–67
--- NOTE | 2024-05-18 00:14 | NUR ---
PATIENT RESTING QUIETLY IN BED ON HIS SIDE, OXYGEN SATURATION 94% PER BEDSIDE PULSE OXIMETRY.
--- NOTE | 2024-05-18 01:27 | NUR ---
CALLED TO REPORT PATIENT HAS PULLED HIS NGT OUT IN HIS SLEEP. REPORTED TO THAT PATIENT HAS ONLY HAD 25ML DRAINAGE FROM NGT OF LAST 6HOUR. SAID TO LEAVE OUT FOR NOW.
--- NOTE | 2024-05-18 01:53 | NUR ---
LITERARY AGENT OBTAINED VITALS AND OUTPUT. PT STATES NO NEEDS AT THIS TIME. CALL LIGHT WITHIN REACH.
--- NOTE | 2024-05-18 02:40 | NUR ---
PATIENT RESTING QUIELTY IN BED, 95% ON 2L N.C. PER BEDSIDE PULSE OXIMETRY. NO DISTRESS NOTED.
--- NOTE | 2024-05-18 03:56 | NUR ---
BED ALARM ANSWERED. PT NEEDED TO USE BATHROOM. PHARMACY OPERATIONS SPECIALIST SBA TO BATHROOM. PT VOIDED AND ASSISTED BACK TO BED. PHARMACY OPERATIONS SPECIALIST OBTAINED AND DOCUMENTED VITALS AND OUTPUT. PT STATES NO FURTHER NEEDS AT THIS TIME. CALL LIGHT IN REACH AND BED ALARM ON. PRIMARY RN IN ROOM.
--- NOTE | 2024-05-18 03:59 | NUR ---
PATIENT SET OFF BED ALARM, STAFF INTO PATIENT ROOM, HE REPORTS HE IS GETTING UP TO USE THE BATHROOM. STAFF REMINDED PATIENT HE NEEDS TO CALL THE NURSES STATION FOR ASSISTANCE HE HAS MEDICAL EQUIPMENT ATTACHED TO HIM AND HE IS UNSTEADY AMBULATING. PATIENT VERBALIZED HE REMEMBERS NOW. PATIENT STSANDBY ASSIST TO BATHROOM, VOIDED, HE REPORTS HE HAS PASSED GAS, ON ASSESSMENT PATIENT IS NOTED TO HAS INCREASED BOWEL TONE AND HIS ABD IS NOT FIRM.
--- NOTE | 2024-05-18 04:16 | NUR ---
daughter brent forrester called and asked to get update from primary rn, primary rn aware. while confirming call back # confirmed w/ daughter brent first three numbers suppose to be [phone] and not [phone]-remaining number correct. front line leader updated and to correct.
--- NOTE | 2024-05-18 04:18 | NUR ---
PATIENT DAUGHTER STEPHANIE CALLED FOR UPDATE, UPDATE PROVIDED.
[2024-05-18 05:44] LABS: BASOPHILS 0.7 % (0-2); EOSINOPHILS 5.6 % (0-6); HEMATOCRIT 38.2 % (35.0-50.0); HEMOGLOBIN 13.3 g/dL (12.0-18.0); LYMPHOCYTES 20.2 % (24-44); MCHC 34.8 g/dl (30-36); MCV 91.9 fl (81-99); MONOCYTES 11.6 % (0-12); NEUTROPHILS 61.9 % (39-80); PLATELET COUNT 220 K/uL (140-440); RBC 4.16 M/ul (4.3-5.7); RDW 14.5 (10.5-15.0)
[2024-05-18 06:02] LABS: ALBUMIN 2.9 g/dL (3.4-5.0); ALBUMIN/GLOBULIN RATIO 0.97 (1.1-2.4); ANION GAP 7.7 (7-21); BUN/CREATININE RATIO 9.09 (6.0-28.6); CALCIUM 9.2 mg/dL (8.5-10.1); CREATININE, SERUM 0.99 mg/dL (0.70-1.30); MAGNESIUM 1.8 mg/dL (1.8-2.4); PHOSPHORUS, INORGANIC 2.9 mg/dL (2.5-4.9); POTASSIUM 3.7 mmol/L (3.5-5.1); PROTEIN, TOTAL 5.9 g/dL (6.4-8.2)
--- NOTE | 2024-05-18 06:36 | NUR ---
AND THIS RN ROUNDING IN PATIENT ROOM THIS AM. ASSESSMENT IS THAT PATIENT IS DOING BETTER, PLAN IS TO ADVANCE DIET TO CLEARS AND TITRATE DOWN IVF INFUSION.
--- NOTE | 2024-05-18 07:30 | NUR ---
REPORT RECEIVED FROM MALIK LISA. PT RESTING ON HIS R SIDE IN BED, RR EVEN AND UNLABORED. 2LNC IN PLACE, CPOX AT BEDSIDE. IVF RATE CHANGED TO 100ML/HR PER MD ORDERS. CALL LIGHT IN REACH.
[2024-05-18] MEDS ORDERED: PANTOPRAZOLE SODIUM 40 MG TABEC PO SCH (09:00)
--- NOTE | 2024-05-18 09:17 | NUR ---
MEDICATION ADMINISTERED, SEE MAR. ASSESSMENT COMPLETE. PT IS UP IN RECLINER WORKING ON BREAKFAST TRAY OF CLEAR LIQUIDS. PT IS TOLERATING CLEAR LIQUIDS WELL SO FAR. NO NAUSEA, CRAMPING, OR DISCOMFORT. BOWEL TONES ARE ACTIVE IN BUQ, HYPOACTIVE IN BLQ. PT HAS BELCHING BUT DENIES FALTULENCE THIS MORNING. PT EXPRESSES CONCERNS OVER NEEDING TO HAVE BOWEL MOVEMENT. THERAPEUTIC COMMUNICATION PROVIDED. PT AGREEABLE TO CLEAR LIQUID DIET AND AMBULATING FREQUENTLY TODAY. PT HAS O2 2LNC IN PLACE, CPOX SUSTAINS>95%. NC REMOVED AT THIS TIME. PT CONTINUES TO SUSTAIN>95% ON CPOX ON RA. NO SOB REPORTED. PT LUNG SOUNDS CLEAR TO BUL, DIMINISHED IN BLL. HEART SOUNDS HEARD WNL. BOTH IVs FLUSH WNL, IVF INFUSING WNL TO R HAND. PT REPORTS HE SLEPT "VERY WELL" LAST NIGHT, HE FEELS WELL RESTED THIS AM. PT HAS NO COMPLAINTS OF PAIN OR DISCOMFORT OF ANY KIND EXCEPT FOR LACK OF BOWEL MOVEMENT. PT HAS MULTIPLE VISITORS ARRIVE AT THIS TIME. NO OTHER REQUESTS, CALL LIGHT IN REACH.
--- NOTE | 2024-05-18 10:34 | NUR ---
PT RESTING IN BED, RR EVEN AND UNLABORED WITH AUDIBLE SNORE. PT SPO2 NOTED TO SUSTAIN 87% ON CPOX. 2LNC APPLIED. SPO2 INCREASED TO 92% ON CPOX WITH NC IN PLACE. PT WAKES AND IS REQUESTING MILK. DISCUSSED CLEAR LIQUID DIET WITH PT, PT VERBALIZES UNDERSTANDING, JUICE PROVIDED INSTEAD. PT HAS NO OTHER REQUESTS, CALL LIGHT IN REACH.
--- NOTE | 2024-05-18 13:06 | NUR ---
PATIENT ALERT AND ORIENTED IN BED. DENIES CM NEEDS. PLAN TO DC HOME WHEN MEDICALLY STABLE.
--- NOTE | 2024-05-18 13:35 | NUR ---
CALL LIGHT ANSWERED. PATIENT ASSISTED TO BATHROOM 1 PA STAND BY. VOID FOR QUANITY SUFFICIENT. PATIENT UP TO AMBULATE IN HALLWAY. BACK INTO BED. NO FURTHER NEEDS AT THIS TIME. CALL LIGHT WITHIN REACH.
--- NOTE | 2024-05-18 14:04 | NUR ---
PT REQUESTING A STOOL SOFTENER. HE IS PASSING GAS AND ATTMPTED TO USE THE RESTROOM BUT HAS BEEN UNSUCCESSFUL IN HAVING A BOWEL MOVEMENT. PT RESTING IN BED AFTER WALKING TWO LAPS IN THE DIAZ WITH MALIK SAPP. NO OTHER REQUESTS AT THIS TIME. CALL LIGHT IN REACH.
--- NOTE | 2024-05-18 14:05 | EKG ---
[facility] [address] [facility] [place] [address] Signed Normal sinus rhythm T wave abnormality, consider anterior ischemia Abnormal ECG When compared with ECG of 23-NOV-2023 10:35, No significant change was found Confirmed by Nick Franklin MD ([id number]) on 05/18/2024 2:05:29 PM Electronically Signed By: NICK FRANKLIN MD 05/18/24 1405 PATIENT NAME: ANDERSONAMANDEEP Electrocardiogram DATE OF : 42 PHYSICIAN: NICK FRANKLIN MD REPORT #: [id number] REPORT IS CONFIDENTIAL AND NOT TO BE RELEASED WITHOUT AUTHORIZATION
--- NOTE | 2024-05-18 15:11 | NUR ---
MD NOTIFIED OF PTs SUPPOSITORY REQUEST, VERBAL ORDER GIVEN AND VERIFIED WITH READBACK.
[2024-05-18] MEDS ORDERED: bisacodyL 10 MG SUPP PR ONE (15:15)
--- NOTE | 2024-05-18 15:24 | NUR ---
VISITED DURING SPIRITUAL CARE ROUNDS. PT APPEARED TO BE SLEEPING. DID NOT DISTURB. PROVIDED PRAYER.
--- NOTE | 2024-05-18 15:45 | NUR ---
MEDICATION ADMINISTERED, SEE MAR. BOTH PT IVs FLUSH WNL AND HAVE NO REDNESS/WARMTH/SWELLING, [facility] PROCESS INTERVENTION NOT WORKING CORRECTLY FOR VASCULAR ASSESSMENT. IVF INFUSING IN PTs R HAND WNL. PTs BOWEL TONES ARE ACTIVE IN ALL FOUR QUADRANTS, SOFT AND NONTENDER TO PALPATION. PT REPORTS NO NAUSEA OR DISCOMFORT, TOLERATING CLEAR LIQUIDS WELL. PT REPORTS HE IS HAVING FLATULENCE, HE IS ALSO BELCHING BUT HE IS CONCERNED THAT HE HAS NOT HAD A BOWEL MOVEMENT YET. PT ENCOURAGED TO HOLD DULCOLAX SUPPOSITORY FOR LONG HE CAN FOR BEST RESULTS. PT VERBALIZES UNDERSTANDING. PT CURRENTLY LYING ON HIS L SIDE, REPORTS HE WILL USE HIS CALL LIGHT IF HE FEELS HE NEEDS TO HAVE A BOWEL MOVEMENT. FRESH ICE WATER AND SPRITE PROVIDED. NO OTHER REQUESTS, CALL LIGHT IN REACH.
--- NOTE | 2024-05-18 16:32 | NUR ---
PT FINISHES WALKING 7 LAPS IN DIAZ WITH DAYANA FELIX AND THEN HAS LARGE VOID AND PASSES SMALL, HARD BOWEL MOVEMENT. PT REPORTS THAT HE IS VERY HUNGRY AND HE CANNOT WAIT TO EAT SOME MASHED POTATOES. NO REQUESTS AT THIS TIME, CALL LIGHT IN REACH.
--- NOTE | 2024-05-18 16:34 | NUR ---
PATIENT WALKED NINE LAPS SO FAR TODAY AROUND MED SURG.
--- NOTE | 2024-05-18 16:35 | NUR ---
PTs DAUGHTER STEPHANIE CALLS FOR UPDATE. UPDATE PROVIDED. ALL QUESTIONS ANSWERED AND CONCERNS ADDRESSED.
--- NOTE | 2024-05-18 18:01 | NUR ---
PT AMBULATES WITH SBA FROM BED TO RESTROOM. PRIVACY PROVIDED. PT VERBALIZES UNDERSTANDING OF USE OF CALL CORD.
--- NOTE | 2024-05-18 19:34 | NUR ---
Awake, watching tv, no c/o pain, on room air, CPOX in place.
--- NOTE | 2024-05-18 20:18 | NUR ---
AWAKE, WATCHING TV, ON ROOM AIR, CPOX AT BEDSIDE. UPPER CLEARS WITH INSPIRATORY CRACKLES, MOIST NON PRODUCTIVE ABD SOFT, YEMI, PASSING GAS. SCDS IN PLACE, IVF INFUSING W/O PROBLEMS RAC
[2024-05-18] MEDS ORDERED: LOSARTAN POTASSIUM 50 MG TAB PO SCH (21:00)
[2024-05-18] MEDS ORDERED: ATORVASTATIN 40 MG TAB PO SCH (21:00)
--- NOTE | 2024-05-18 21:17 | NUR ---
ADVERTISING OPERATIONS MANAGER SBA TO BATHROOM. PT VOIDED AND PASSED GAS. PT ASSISTED BACK TO BED. AND SCDS PLACED BACK ON LEGS AND CPOX RECONNECTED. PT STATES NO FURTHER NEEDS AT THIS TIME. CALL LIGHT WITHIN REACH AND BED ALARM ON.
[2024-05-18 23:12] LABS: PARATHYROID HORMONE,INTACT 30 pg/mL (15-65)
--- NOTE | 2024-05-18 23:28 | NUR ---
CALL LIGHT ANSWERED. PT NEEDED TO USE BATHROOM. DECKHAND FISHING VESSEL SBA TO BATHROOM. PT VOIDED AND ASSISTED BACK TO BED. PT STATES NO FURTHER NEEDS AT THIS TIME. CPOX AND SCDS BACK ON. CALL LIGHT WITHIN REACH AND BED ALARM ON.
--- NOTE | 2024-05-19 00:10 | NUR ---
Resting, eyes closed, no ss/x distress
[2024-05-19 05:03] VITALS: BP 109/79
--- NOTE | 2024-05-19 05:12 | NUR ---
CALLT LIGHT ANSWERED. PT NEEDED TO USE BATHROOM. ENTERPRISE APPLICATION ANALYST SBA TO BATHROOM. PT VOIDED AND ASSISTED BACK TO BED. ENTERPRISE APPLICATION ANALYST AND RN OBTAINED AND DOCUMENTED VITALS AND I&O. PT STATES NO FURTHER NEEDS AT THIS TIME. CALL LIGHT WITHIN REACH AND BED ALARM ON.
[2024-05-19 05:27] VITALS: BP 109/79
--- NOTE | 2024-05-19 05:30 | NUR ---
Awake, used cll light, up to BRP, SBA, voided, back to bed, tolerated very well, no c/o pain or SOB. IVf infusing w/o problems. scds in place, cpox on at bedside
--- NOTE | 2024-05-19 07:17 | NUR ---
REPORT RECEIVED FROM MALIK DAIGLE. PT RESTING IN BED WITH EYES CLOSED, RR EVEN AND UNLABORED, CPOX AT BEDSIDE. IVF INFUSING WNL. CALL LIGHT IN REACH.
--- NOTE | 2024-05-19 09:00 | NUR ---
MD CAST PRESENT TO ASSESS AND EVALUATE PT. ALL QUESTIONS AND CONCERNS ADDRESSED AND ANSWERED. PT UP IN RECLINER WORKING ON BREAKFAST TRAY. THIS RN REMAINS IN ROOM AT THIS TIME.
--- NOTE | 2024-05-19 09:06 | NUR ---
MEDICATION ADMINISTERED, SEE MAR. ASSESSMENT COMPLETE. PT HAS NO COMPLAINTS OF NAUSEA OR DISCOMFORT, BOWEL TONES ACTIVE IN ALL FOUR QUADRANTS, ABDOMEN IS SOFT AND NON-TENDER. LUNGS CLEAR TO BUL WITH FINE CRACKLES IN BLL. PT RR IS EVEN AND UNLABORED, DENIES SHORTNESS OF BREATH, CPOX IN PLACE WITH SUSTAINED SPO2>95% ON ROOM AIR. PT HAS OCCASIONAL NON-PRODUCTIVE COUGH AND HE REPORTS HE IS NOT CONCERNED ABOUT HIS BREATHING. PT ENCOURAGED TO BREATHE DEEPLY, AMBULATE MORE FREQUENTLY AND COUGH TO CLEAR LUNGS. PT VERBALIZES UNDERSTANDING. PT AMBULATES WITH SBA TO RESTROOM, VOIDS, PASSES FLATULENCE BUT NO BOWEL MOVEMENT. SMALL AMOUNT OF NATALIE BLOOD NOTED IN TOILET. MD CAST ARRIVES. SEGUN NOTIFIED OF NATALIE BLOOD, LOOKS IN TOILET, DISCUSSES FINDING WITH PT AND EDUCATES ON SIDE-EFFECTS OF NG/CONSTIPATION. PT VERBALIZES UNDERSTANDING. PT REMAINS UP IN RECLINER TO FINISH BREAKFAST TRAY. NO CONCERNS AT THIS TIME, CALL LIGHT IN REACH.
--- NOTE | 2024-05-19 10:40 | NUR ---
PT UP IN RECLINER WITH BLE ELEVATED. BOTH IVs REMOVED WNL. PT LOOKING FORWARD TO GOING HOME SOON. PT PROVIDED WITH HIS BAG OF CLOTHES, PRIVACY PROVIDED SO PT CAN GET DRESSED. CALL LIGHT IN REACH.
[2024-05-19 11:12] VITALS: BP 108/63
--- NOTE | 2024-05-20 08:37 | DS ---
[facility] [address], [place] [address] Signed ADMISSION DATE: 05/17/2024 DISCHARGE DATE: 05/19/2024 FINAL DIAGNOSIS: Nausea and vomiting associated with ileus. PROCEDURES: 1. Chest x-ray. 2. Ultrasound of the right upper quadrant. 3. CT scan of abdomen and pelvis. HISTORY OF PRESENT ILLNESS: Amandeep is an 84-year-old gentleman, who is retired out of the . 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 They found his daughter had Saba syndrome while she was young and in the . 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 Amandeep has been following along with his primary care provider and for annual colonoscopies and upper endoscopies every few years. He is yet to develop any cancers. 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 On this occasion, he woke up about 1 hour prior to coming to the emergency room with nausea and vomiting. In the emergency room his vital signs were stable. White count was borderline at 10.5. His calcium was up a little bit, but then the parathyroid hormone came back normal. A chest x-ray was unremarkable. There was some concern about right upper quadrant abdominal pain. Therefore, he had an ultrasound of the right upper quadrant. He had some benign-appearing hepatic cyst. He then had a CT scan of the abdomen and pelvis. He had a small bowel dilated at 3.6 cm with some air-fluid levels. There was a possible transition point in the terminal ileum. However, there was no obvious cancer, no previous abdominal surgeries that would portend scar tissue and there was no obvious hernia. Given an NG tube I was asked to admit him as a local general surgeon on-call. HOSPITAL COURSE: Amandeep was admitted as above and treated conservatively. He very quickly had some blood in the NG tube from the suction. This showed up in his stool a day later. In the middle of night, he had pulled out the NG tube. By the next day, he was having liquid bowel movements and his abdomen was completely soft and nontender. He is tolerating his clear liquid diet. He is hungry and wants to advance his diet and go home. He has been able to perform his activities of daily living without any troubles. He said he feels safe going home. DISCHARGE PLANS AND MEDICATIONS: Amandeep be discharged home without any new prescriptions. He will continue his usual medications at home as we have for him here in the hospital. He is always welcome to Electronically Signed By: LETICIA CAST MD 05/20/24 0837 PATIENT NAME: AMANDEEP ANDERSON DISCHARGE SUMMARY DATE OF : 42 REPORT #: [id number] PHYSICIAN: LETICIA CAST MD PCP: LUBA GUADARRAMA DO REPORT IS CONFIDENTIAL AND NOT TO BE RELEASED WITHOUT AUTHORIZATION [address] [address] Signed follow up my office as needed. He said he sees his primary care provider once or twice a year, that would be fine. Of course, he can always come back to the emergency room if he has any issues. I asked him to stay on a full liquid diet, maybe today and just advance as tolerated. He has expressed understanding, agrees above plan. Leticia Cast MD ALB/MODL /[id number] cc: DO Leticia Dewey MD Copies: LUBA GUADARRAMA ANDREW L MD ~ Electronically Signed By: LETICIA CAST MD 05/20/24 0837 PATIENT NAME: AMANDEEP ANDERSON DISCHARGE SUMMARY DATE OF : 42 REPORT #: [id number] PHYSICIAN: LETICIA CAST MD PCP: LUBA GUADARRAMA DO REPORT IS CONFIDENTIAL AND NOT TO BE RELEASED WITHOUT AUTHORIZATION
== END 2024-05-19 11:40 | disposition home or self-care (01) | DRG 390 ==
LOC: ED 02:49 → MS 07:44
PROVIDERS: Internal Medicine; ADMIT Colon & Rectal Surgery; ATTEND Colon & Rectal Surgery
PROC: 0DH67UZ Insertion of Feeding Device into Stomach, Via Natural or Artificial Opening (ICD-10-PCS; principal; 2024-05-17)
DX: K56.7 Ileus, unspecified (principal); K56.600 Partial intestinal obstruction, unspecified as to cause; K76.89 Other specified diseases of liver; I25.10 Atherosclerotic heart disease of native coronary artery without angina pectoris; I10 Essential (primary) hypertension; K21.9 Gastro-esophageal reflux disease without esophagitis; J45.909 Unspecified asthma, uncomplicated; Z95.1 Presence of aortocoronary bypass graft; Z98.890 Other specified postprocedural states; Z88.5 Allergy status to narcotic agent; Z88.8 Allergy status to other drugs, medicaments and biological substances; Z91.030 Bee allergy status; Z91.038 Other insect allergy status; Z79.82 Long term (current) use of aspirin; Z79.51 Long term (current) use of inhaled steroids; Z79.899 Other long term (current) drug therapy
CPT/HCPCS: 36415; 71045; 74177; 76705; 80053; 81001; 83690; 83735; 83970; 84100; 84484; 85025; 93005; 93010; 94760; 94762; A9270; J2405; J2470; J7042; J7121; Q9967

== ENCOUNTER 2024-09-23 19:06 | Emergency (ER) | payer MEDICARE, OTHER ==
[~2024-09-23] VITALS: Ht 175.3 cm; Wt 90.0 kg
[2024-09-23] MEDS ORDERED: SUCRALFATE 1 GM TAB PO ONE (20:00)
[2024-09-23] MEDS ORDERED: SODIUM CHLORIDE 0.9% 500 ML IV ONE (20:00)
[2024-09-23 20:18] LABS: BASOPHILS 0.8 % (0.2-1.2); EOSINOPHILS 2.4 % (0.8-7.0); LYMPHOCYTES 21.7 % (21.8-53.1); MCH 30.1 PG (25.7-32.2); MCHC 31.9 g/dL (32.3-36.5); MCV 94.5 fL (79.0-92.2); MONOCYTES 11.6 % (5.3-12.2); NEUTROPHILS 63.1 % (34.0-67.9); RBC 4.55 M/uL (4.63-6.08)
[2024-09-23 20:35] LABS: ALT (SGPT) 20.0 U/L (14-59); AST (SGOT) 12.0 U/L (15-37); GLOMERULAR FILTRATION RATE,EST 71.0 mL/min (>60); PROTEIN, TOTAL 6.8 g/dL (6.4-8.2); UREA NITROGEN 11.0 mg/dL (7-18)
[2024-09-23 20:36] LABS: BLOOD/HGB, URINE NEGATIVE (Negative); KETONE, URINE NEGATIVE (Negative); LEUK ESTERASE, URINE NEGATIVE (negative); NITRITE, URINE NEGATIVE (negative)
[2024-09-23] MEDS ORDERED: ONDANSETRON 4 MG HOME.PACK SL ONE (21:15)
[2024-09-23 21:30] VITALS: BP 138/82
== END 2024-09-23 21:32 | disposition home or self-care (01) ==
LOC: ED 19:06
PROVIDERS: Family Medicine
DX: K52.9 Noninfective gastroenteritis and colitis, unspecified (principal); I10 Essential (primary) hypertension; Z95.1 Presence of aortocoronary bypass graft; Z91.030 Bee allergy status; Z88.1 Allergy status to other antibiotic agents; Z88.5 Allergy status to narcotic agent; Z88.8 Allergy status to other drugs, medicaments and biological substances; Z79.82 Long term (current) use of aspirin; Z79.899 Other long term (current) drug therapy
CPT/HCPCS: 36415; 80053; 81003; 83690; 83735; 85025; 96374; 99284-25; A9270; J2405; J7040